=== PATIENT | female | born 1930 | race Caucasian/White ===

== ENCOUNTER 2018-04-24 11:15 | Inpatient (IN) ==
[2018-04-24 12:16] LABS: Basophils % 0.4 % (0.1-2.0); Eosinophils # 0.1 K/mm3 (0.0-0.4); Eosinophils % 1.3 % (0.1-12.0); Hemoglobin 14.9 g/dL (12.2-16.2); Lymphocytes # 0.7 K/mm3 (0.7-4.5); Lymphocytes % 13.5 % (10-50); Mean Corpuscular HGB Conc 32.4 g/dL (31.8-35.4); Mean Corpuscular Hemoglobin 28.8 pg (27.0-31.2); Mean Corpuscular Volume 88.9 fl (81-99); Mean Platelet Volume 6.8 fl (7.4-10.4); Monocytes # 0.4 K/mm3 (0.1-1.0); Monocytes % 6.6 % (1.7-9.3); Neutrophils # 4.3 K/mm3 (1.8-7.8); Neutrophils % 78.2 % (37.0-80.0); Platelet Count 196 K/mm3 (142-424); Red Blood Count 5.18 M/mm3 (4.20-5.40); Red Cell Distribution Width 14.4 % (11.5-17.5); White Blood Count 5.5 K/mm3 (4.8-10.8)
[2018-04-24 12:26] LABS: Anion Gap 9.1 mEq/L (5-15); Calcium 8.6 mg/dL (8.5-10.1); Potassium 4.1 mmoL/L (3.5-5.1)
--- NOTE | 2018-04-24 15:41 | Pharmacy Consult Notes ---
[facility] Pharmacy VTE Monitoring - Patient Demographics Admission date: 04/24/18 Report Date: 04/24/18 Time: 15:41 Allergies/Adverse Reactions: Patient Allergies amoxicillin [From Augmentin] Allergy (Intermediate, Verified 04/13/18 13:10) Blister clavulanic acid [From Augmentin] Allergy (Intermediate, Verified 04/13/18 13:10) Blister clarithromycin [CLARITHROMYCIN] Allergy (Unknown, Verified 04/13/18 13:10) codeine [CODEINE] Allergy (Unknown, Verified 04/13/18 13:10) diazepam [DIAZEPAM] Allergy (Unknown, Verified 04/13/18 13:10) Height: 1.65 m Weight: 81.193 kg - VTE Risk Labs: VTE Related Lab Results Hgb 14.9 g/dL (12.2-16.2) 04/24/18 12:08 Hct 46.0 % (37.0-47.0) 04/24/18 12:08 Plt Count 196 K/mm3 (142-424) 04/24/18 12:08 BUN 22 mg/dL (7-18) H 04/24/18 12:08 Creatinine 1.01 mg/dL (0.55-1.02) 04/24/18 12:08 Estimated Creat Clear 51 mL/min (50-200) 04/24/18 12:08 - Prophylaxis VTE Prophylaxis Ordered?: Yes Types of VTE Prophylaxis: TEDS Knee High Location of Applied Device: Bilateral Lower Extremeties - VTE Diagnosis Confirmed Treatment or plan recommended: Continue Current Treatment
--- NOTE | 2018-04-24 18:16 | History & Physical Report ---
*Admission Date: 04/24/18 *Chief complaint: Malaise/weakness/hyponatremia *History of present illness: 87-year-old white female who ends of her multiple medical problems has enjoyed very good functional status over the past decades, and I herself, with excellent attention from her children, who has had a goals of accelerated hypertension who has several months. 4 weeks ago I started chlorthalidone as she had previously had problems with HCTZ because of muscle pain. She had done initially well but over the past couple of weeks he developed increasing fatigue symptoms. I instructed her daughter to start medication a couple of days ago and she came to the office today where she was found to have vomiting, appear to be dry from a volume status and sent to the outpatient area for IV fluids and lab work. Lab work showed critically low sodium of 19 and she is admitted to hospital for ongoing fluids. Interestingly she has no cognitive deficits and is alert and oriented x3. [facility] History I have reviewed the patient's past medical history: Yes Medical History: Reports:: Hyperlipidemia, Hypertension Denies:: Cancer, Diabetes Mellitus Type 1, Diabetes Mellitus Type 2, MRSA, Seizures Other Medical History: Reports: Anemia, Arthritis, Hoarseness Laterality Cases: Bilateral: Tonsillectomy Other Surgeries: Yes: Hysterectomy-Total, Skin Cancer Excision Amputation: No Fractures: No - *Social History Educational Level: Completed High School Smoking Status: Never smoker Alcohol Intake: never Occupational Status: retired Housing: house Household Members: none - Psychiatric History Expresses thoughts of harming self/others: None Suicide Plan Description: No Plan *Family Hx:: Asthma, Cancer, Hypertension Review of Systems - Review of Systems Review of systems:: pertinent systems reviewed and negative unless documented below - Constitutional Reports anorexia, Reports fatigue, Denies headache(s) - Eyes Denies blind spots, Denies blurry vision, Denies change in vision - ENT Denies abnormal hearing, Denies bleeding gums - *Respiratory Denies change in phlegm color, Denies chest congestion, Denies cough - *Gastrointestinal Reports abdominal pain, Reports bloating - *Genitourinary Denies abnormal periods - *Musculoskeletal Denies abnormal walking, Denies joint pain, Denies decreased muscle mass - Integumentary/Breasts Denies bleeding lesions, Denies change in skin color, Denies dry skin - *Neurologic Reports abnormal walking - Psychiatric Denies abnormal sleep pattern, Denies lack of enjoyment - Endocrine Denies cold intolerance - Hematologic/Lymphatic Denies easy bleeding, Denies easy bruising - Allergic/Immunologic Denies GI upset with certain foods Meds Home Medications Medication Instructions Recorded Confirmed Type Aspirin [Adult Low Dose Aspirin EC] 81 mg PO DAILY 04/25/17 04/24/18 History Clopidogrel Bisulfate [Plavix 75mg 75 mg PO DAILY 04/25/17 04/24/18 History Tab] Pravastatin Sodium [Pravachol] 40 mg PO HS 04/25/17 04/24/18 History ALPRAZolam [Xanax 0.5mg tab] 0.5 mg PO HSP PRN 04/26/17 04/24/18 History Bisoprolol Fumarate [Bisoprolol 10 mg PO DAILY 04/26/17 04/24/18 History 10mg Tablet] Lansoprazole [Prevacid] 30 mg PO BID 04/26/17 04/24/18 History Sucralfate [Sucralfate 1gm 1 gm PO ACHS 04/26/17 04/24/18 History Tab] Chlorthalidone 25 mg PO DAILY 04/24/18 04/24/18 History Losartan Potassium 100 mg PO DAILY 04/24/18 04/24/18 History Oxybutynin Chloride [Ditropan 5mg 5 mg PO BID 04/24/18 04/24/18 History tablet] Allergies Allergy/AdvReac Type Severity Reaction Status Date / Time amoxicillin [From Augmentin] Allergy Intermediate Blister Verified 04/13/18 13:10 clavulanic acid Allergy Intermediate Blister Verified 04/13/18 13:10 [From Augmentin] clarithromycin Allergy Unknown Verified 04/13/18 13:10 [CLARITHROMYCIN] codeine [CODEINE] Allergy Unknown Verified 04/13/18 13:10 diazepam [DIAZEPAM] Allergy Unknown Verified 04/13/18 13:10 Exam Vital signs and Labs for Last 24 Hours: Temp Pulse Resp BP Pulse Ox 97.5 F L 62 18 185/89 H 94 L 04/24/18 16:04 04/24/18 16:04 04/24/18 16:04 04/24/18 16:04 04/24/18 16:04 Laboratory Results - last 24 hr 04/24/18 12:08: WBC 5.5, RBC 5.18, Hgb 14.9, Hct 46.0, MCV 88.9, MCH 28.8, MCHC 32.4, RDW 14.4, Plt Count 196, MPV 6.8 L, Neut % (Auto) 78.2, Lymph % (Auto) 13.5, [place] % (Auto) 6.6, Eos % (Auto) 1.3, Baso % (Auto) 0.4, Neut # (Auto) 4.3, Lymph # (Auto) 0.7, [place] # (Auto) 0.4, Eos # (Auto) 0.1, Baso # (Auto) 0.0 04/24/18 12:08: Sodium 119 L, Potassium 4.1, Chloride 84 L, Carbon Dioxide 30, Anion Gap 9.1, BUN 22 H, Creatinine 1.01, Estimated Creat Clear 51, Estimated GFR 52 L, Est GFR ( Amer) 63, Glucose 113 H, Calcium 8.6 I & O for Last 24 hours: Intake & Output 04/22/18 04/23/18 04/24/18 04/25/18 11:59 11:59 11:59 11:59 Intake Total 360 / 360 Output Total 0 / 0 Balance 360 / 360 Weight 179 lb 174 lb 8 oz Narrative: After a couple of liter fluid patient appears brighter than she did in the office. Lungs have good movement. Heart rate regular. Abdomen soft, minimally tender. Oropharynx, moist ENT exam otherwise clear. No JVD No clubbing, no cyanosis. No edema. Assessment and Plan (1) Hyponatremia Current visit: Yes Status: Acute Category: Medical Code(s): E87.1 - Hypo- osmolality and hyponatremia Probably from medication adverse effect. Already feels better with hydration. Continue normal saline overnight and check labs tomorrow. Start regular medications in the hospital obviously except for thiazide diu retic. (2) Hypertension, accelerated Current visit: Yes Status: Acute Category: Medical Code(s): I10 - Essential (primary) hypertension Blood planes elevated. She is currently asymptomatic. She is on beta-edna and max dose angiotensin receptor edna. Add low-dose amlodipine with 1 dose tonight to see if this will help blood pressure and watch heart rate tomorrow morning.
[2018-04-25 07:33] LABS: Basophils % 0.5 % (0.1-2.0); Eosinophils # 0.1 K/mm3 (0.0-0.4); Eosinophils % 1.8 % (0.1-12.0); Hematocrit 44.6 % (37.0-47.0); Hemoglobin 14.2 g/dL (12.2-16.2); Lymphocytes # 0.8 K/mm3 (0.7-4.5); Lymphocytes % 15.7 % (10-50); Mean Corpuscular HGB Conc 31.8 g/dL (31.8-35.4); Mean Corpuscular Hemoglobin 28.5 pg (27.0-31.2); Mean Corpuscular Volume 89.6 fl (81-99); Monocytes # 0.3 K/mm3 (0.1-1.0); Monocytes % 5.9 % (1.7-9.3); Neutrophils # 3.9 K/mm3 (1.8-7.8); Neutrophils % 76.2 % (37.0-80.0); Platelet Count 184 K/mm3 (142-424); Red Blood Count 4.98 M/mm3 (4.20-5.40); Red Cell Distribution Width 14.5 % (11.5-17.5); White Blood Count 5.1 K/mm3 (4.8-10.8)
[2018-04-25 07:40] LABS: Anion Gap 7.8 mEq/L (5-15); Calcium 8.2 mg/dL (8.5-10.1); Potassium 3.8 mmoL/L (3.5-5.1)
--- NOTE | 2018-04-25 11:36 | Progress Note ---
Internal Medicine - PN: Subj *Date: 04/25/18 *Time: 11:32 Interval history: Patient reports feeling better this morning but still weak. Electrolyte improving. Tolerating p.o. intake. She is concerned however because she has some mild dysuria with strong smelling urine. Denies any fevers, nausea vomiting, shortness of breath, syncope. Does complain of mild dysuria and 2 loose stools. Exam Vital signs and Labs for Last 24 Hours: Temp Pulse Resp BP Pulse Ox 98.3 F 58 L 16 164/69 H 96 04/25/18 08:00 04/25/18 08:00 04/25/18 08:00 04/25/18 08:00 04/25/18 08:00 Laboratory Results - last 24 hr 04/24/18 12:08: WBC 5.5, RBC 5.18, Hgb 14.9, Hct 46.0, MCV 88.9, MCH 28.8, MCHC 32.4, RDW 14.4, Plt Count 196, MPV 6.8 L, Neut % (Auto) 78.2, Lymph % (Auto) 13.5, [place] % (Auto) 6.6, Eos % (Auto) 1.3, Baso % (Auto) 0.4, Neut # (Auto) 4.3, Lymph # (Auto) 0.7, [place] # (Auto) 0.4, Eos # (Auto) 0.1, Baso # (Auto) 0.0 04/24/18 12:08: Sodium 119 L, Potassium 4.1, Chloride 84 L, Carbon Dioxide 30, Anion Gap 9.1, BUN 22 H, Creatinine 1.01, Estimated Creat Clear 51, Estimated GFR 52 L, Est GFR ( Amer) 63, Glucose 113 H, Calcium 8.6 04/25/18 07:15: WBC 5.1, RBC 4.98, Hgb 14.2, Hct 44.6, MCV 89.6, MCH 28.5, MCHC 31.8, RDW 14.5, Plt Count 184, MPV 7.0 L, Neut % (Auto) 76.2, Lymph % (Auto) 15.7, [place] % (Auto) 5.9, Eos % (Auto) 1.8, Baso % (Auto) 0.5, Neut # (Auto) 3.9, Lymph # (Auto) 0.8, [place] # (Auto) 0.3, Eos # (Auto) 0.1, Baso # (Auto) 0.0 04/25/18 07:15: Sodium 127 L, Potassium 3.8, Chloride 96 L, Carbon Dioxide 27, Anion Gap 7.8, BUN 14 D, Creatinine 0.87, Estimated Creat Clear 51, Estimated GFR 62, Est GFR ( Amer) 75, Glucose 95, Calcium 8.2 L I & O for Last 24 hours: Intake & Output 04/22/18 04/23/18 04/24/18 04/25/18 23:59 23:59 23:59 23:59 Intake Total 360 / 360 2192 / 2192 Output Total 0 / 0 800 / 800 Balance 360 / 360 1392 / 1392 Weight 79.152 kg 80.739 kg Narrative: Alert and oriented this morning, very pleasant in conversation. Not ill- appearing. Lungs have good movement, clear to auscultation, no crackles Heart rate regular. Abdomen soft, minimally tender. Oropharynx, moist ENT exam otherwise clear. No JVD No clubbing, no cyanosis. No edema. Assessment and Plan (1) Hyponatremia Current visit: Yes Status: Acute Category: Medical Code(s): E87.1 - Hypo- osmolality and hyponatremia Improving, signs of cognitive impairment or confusion. Continue repletion with IV fluids, slow rate of normal saline to third cc an hour. Repeat labs in the morning. Improving fatigue likely due to electrolyte abnormalities and dehydration. And to get up a bed today to bedside chair multiple times and walking multiple times with assistance. If more steady on feet and normal so tomorrow for discharge home (2) Hypertension, accelerated Current visit: Yes Status: Chronic Category: Medical Code(s): I10 - Essential (primary) hypertension Stable. Avoid diuretics at this time. (3) Acute kidney injury Current visit: Yes Status: Resolved Category: Medical Code(s): N17.9 - Acute kidney failure, unspecified Present on admission his creatinine was greater than 1 with baseline approximately 0.7, additionally BUN elevated -Resolved with fluid hydration -Monitor again in the morning, avoid nephrotoxic's (4) Dysuria Current visit: Yes Status: Acute Category: Medical Code(s): R30.0 - Dysuria Unclear etiology, UA and UC pending. Remains afebrile
[2018-04-25 11:56] LABS: Microscopic, Urine URINE MICROSCOPIC (MICROSCOPIC)
[2018-04-25 12:10] LABS: Appearance,Urine CLEAR (Clear); Bilirubin,Urine Negative (Negative); Blood, Urine Negative (Negative); Color,Urine YELLOW (Yellow); Glucose,Urine (UA) Negative (Negative); Ketones,Urine Negative (Negative); Leukocyte Esterase,Urine 1+ (Negative); Protein,Urine Negative (Negative); Specific Gravity, Urine <= 1.005 (1.005-1.030); Urobilinogen,Urine 0.2 EU/dl (0.2)
[2018-04-25 13:44] LABS: Amorphous Sediment,Urine Trace /lpf; Squamous Epithelial Cell,Urine Occasional #/hpf (0-5)
[2018-04-26 06:24] LABS: Basophils % 0.3 % (0.1-2.0); Eosinophils # 0.1 K/mm3 (0.0-0.4); Eosinophils % 2.1 % (0.1-12.0); Hematocrit 41.7 % (37.0-47.0); Hemoglobin 13.4 g/dL (12.2-16.2); Lymphocytes # 0.9 K/mm3 (0.7-4.5); Lymphocytes % 14.9 % (10-50); Mean Corpuscular HGB Conc 32.1 g/dL (31.8-35.4); Mean Corpuscular Hemoglobin 28.7 pg (27.0-31.2); Mean Corpuscular Volume 89.3 fl (81-99); Mean Platelet Volume 6.6 fl (7.4-10.4); Monocytes # 0.3 K/mm3 (0.1-1.0); Neutrophils # 4.4 K/mm3 (1.8-7.8); Neutrophils % 76.7 % (37.0-80.0); Platelet Count 170 K/mm3 (142-424); Red Blood Count 4.67 M/mm3 (4.20-5.40); Red Cell Distribution Width 14.6 % (11.5-17.5); White Blood Count 5.7 K/mm3 (4.8-10.8)
[2018-04-26 06:35] LABS: Anion Gap 10.8 mEq/L (5-15); Calcium 8.1 mg/dL (8.5-10.1); Potassium 3.8 mmoL/L (3.5-5.1)
--- NOTE | 2018-04-26 08:30 | Discharge Summary ---
General - General Admission date:: 04/24/18 Discharge date: 04/26/18 HPI HPI: 87-year-old white female who ends of her multiple medical problems has enjoyed very good functional status over the past decades, and I herself, with excellent attention from her children, who has had a goals of accelerated hypertension who has several months. 4 weeks ago I started chlorthalidone as she had previously had problems with HCTZ because of muscle pain. She had done initially well but over the past couple of weeks he developed increasing fatigue symptoms. I instructed her daughter to start medication a couple of days ago and she came to the office today where she was found to have vomiting, appear to be dry from a volume status and sent to the outpatient area for IV fluids and lab work. Lab work showed critically low sodium of 19 and she is admitted to hospital for ongoing fluids. Interestingly she has no cognitive deficits and is alert and oriented x3. Hospital Course Hospital Course: Ms. Leone was admitted due to electrolyte disturbances and unsteadiness on her feet. Her sodium was gradually replaced with IV fluids with normalization today (day of discharge). Diuretics were held as this was believed to be the culprit for electrolyte disturbances. She reports feeling much better. Got up to the bedside chair yesterday for several hours. Ambulating with minimal assistance and the use of a cane. Transition back and forth to the bathroom independently. Ms. leone did however complain of some dysuria during admission. UA and urine culture positive for UTI. Initiated on Macrobid. Plan to complete 7-day course, final culture and sensitivity pending. We will follow-up as outpatient . She remained hemodynamically stable. Still has some elevated blood pressure however adjustments have been made to her regimen including addition of amlodipine. Holding diuretics due to light disturbances. Plan to reevaluate in the outpatient setting. Meeting criteria for discharge home. Remains afebrile, no shortness of breath, no headache, no changes in mentation, no chest pain. Objective Vital signs: Temp Pulse Resp BP Pulse Ox 98.5 F 60 20 188/98 H 97 04/25/18 20:00 04/26/18 04:00 04/26/18 04:00 04/26/18 04:45 04/26/18 04:00 Narrative: Alert and oriented this morning, very pleasant in conversation. Not ill- appearing. Lungs have good movement, clear to auscultation, no crackles Heart rate regular. Abdomen soft, minimally tender. Oropharynx, moist ENT exam otherwise clear. No JVD No clubbing, no cyanosis. No edema. Results Labs on day of discharge: Labs from last 24 hours 04/26/18 04/26/18 04/25/18 06:15 06:15 11:25 WBC 5.7 RBC 4.67 Hgb 13.4 Hct 41.7 MCV 89.3 MCH 28.7 MCHC 32.1 RDW 14.6 Plt Count 170 MPV 6.6 L Neut % (Auto) 76.7 Lymph % (Auto) 14.9 [place] % (Auto) 6.0 Eos % (Auto) 2.1 Baso % (Auto) 0.3 Neut # (Auto) 4.4 Lymph # (Auto) 0.9 [place] # (Auto) 0.3 Eos # (Auto) 0.1 Baso # (Auto) 0.0 Sodium 134 L Potassium 3.8 Chloride 100 Carbon Dioxide 27 Anion Gap 10.8 BUN 12 Creatinine 0.96 Estimated Creat Clear 53 Estimated GFR 55 L Est GFR ( Amer) 67 Glucose 100 Calcium 8.1 L Urine Color Yellow Urine Appearance Clear Urine pH 6.0 Ur Specific [place] <= 1.005 Urine Protein Negative Urine Glucose (UA) Negative Urine Ketones Negative Urine Blood Negative Urine Nitrate Negative Urine Bilirubin Negative Urine Urobilinogen 0.2 Ur Leukocyte Esterase 1+ A Urine RBC None Urine WBC 3-5 Ur Squamous Epith Cells Occasional Amorphous Sediment Trace Preliminary micro results at discharge 04/25/18 11:25 Urine Culture - Preliminary Urine,Clean Catch Gram Negative Rods DS: Diagnosis - Discharge Diagnosis (1) Hyponatremia Status: Resolved (2) Hypertension, accelerated Status: Chronic (3) Acute kidney injury Status: Resolved (4) Dysuria Status: Acute Discharge Plan - Patient Discharge Instructions ACTIVITY: Ambulate as tolerated DIET: continue same diet Patient Instructions: High Blood Pressure, DI for Dehydration -- Adult, DI for Hyponatremia - Follow up Plan Follow up with: Michel Pineda MD [Primary Care Provider] - 1 week Disposition: Home, Self-Half-Way Medications: Home Medications Medication Instructions Recorded Confirmed Type Aspirin [Adult Low Dose Aspirin EC] 81 mg PO DAILY 04/25/17 04/24/18 History Clopidogrel Bisulfate [Plavix 75mg 75 mg PO DAILY 04/25/17 04/24/18 History Tab] Pravastatin Sodium [Pravachol] 40 mg PO HS 04/25/17 04/24/18 History ALPRAZolam [Xanax 0.5mg tab] 0.5 mg PO HSP PRN 04/26/17 04/24/18 History Bisoprolol Fumarate [Bisoprolol 10 mg PO DAILY 04/26/17 04/24/18 History 10mg Tablet] Lansoprazole [Prevacid] 30 mg PO BID 04/26/17 04/24/18 History Sucralfate [Sucralfate 1gm 1 gm PO ACHS 04/26/17 04/24/18 History Tab] Losartan Potassium 100 mg PO DAILY 04/24/18 04/24/18 History Oxybutynin Chloride [Ditropan 5mg 5 mg PO BID 04/24/18 04/24/18 History tablet] Amlodipine Besylate [Amlodipine 10 mg PO DAILY 30 Days #30 tab 04/26/18 Rx 10mg Tab] Nitrofurantoin Monohyd/M-Cryst 100 mg PO BID 7 Days #13 capsule 04/26/18 Rx [Macrobid 100 mg Capsule] Prescriptions/Medication Reconciliation: New Amlodipine Besylate [Amlodipine 10mg Tab] 10 mg PO DAILY 30 Days #30 tab Nitrofurantoin Monohyd/M-Cryst [Macrobid 100 mg Capsule] 100 mg PO BID 7 Days #13 capsule Continue Aspirin [Adult Low Dose Aspirin EC] 81 mg PO DAILY Clopidogrel Bisulfate [Plavix 75mg Tab] 75 mg PO DAILY Lansoprazole [Prevacid] 30 mg PO BID ALPRAZolam [Xanax 0.5mg tab] 0.5 mg PO HSP PRN PRN Reason: Anxiety Sucralfate [Sucralfate 1gm Tab] 1 gm PO ACHS Bisoprolol Fumarate [Bisoprolol 10mg Tablet] 10 mg PO DAILY Losartan Potassium 100 mg PO DAILY Pravastatin Sodium [Pravachol] 40 mg PO HS Oxybutynin Chloride [Ditropan 5mg tablet] 5 mg PO BID Discontinued Chlorthalidone 25 mg PO DAILY
== END 2018-04-26 11:55 | disposition home or self-care (01) | DRG 641 ==
LOC: 2ND 11:15 → INF 11:15
PROVIDERS: ADMIT Internal Medicine Adolescent Medicine; ATTEND Internal Medicine Adolescent Medicine
DX: Z88.5 Allergy status to narcotic agent; T50.2X5A Adverse effect of carbonic-anhydrase inhibitors, benzothiadiazides and other diuretics, initial encounter; Z88.8 Allergy status to other drugs, medicaments and biological substances; E78.5 Hyperlipidemia, unspecified; Z79.899 Other long term (current) drug therapy; I10 Essential (primary) hypertension; Z80.9 Family history of malignant neoplasm, unspecified; Z79.02 Long term (current) use of antithrombotics/antiplatelets; Z88.0 Allergy status to penicillin; Z79.82 Long term (current) use of aspirin; N17.9 Acute kidney failure, unspecified; Z90.710 Acquired absence of both cervix and uterus; R26.81 Unsteadiness on feet; N39.0 Urinary tract infection, site not specified; Z82.5 Family history of asthma and other chronic lower respiratory diseases; E87.1 Hypo-osmolality and hyponatremia; Z82.49 Family history of ischemic heart disease and other diseases of the circulatory system; Z85.828 Personal history of other malignant neoplasm of skin

== ENCOUNTER 2018-09-11 11:01 | Inpatient (IN) ==
[2018-09-11 11:32] LABS: Basophils % 0.1 % (0.1-2.0); Eosinophils % 0.3 % (0.1-12.0); Hemoglobin 13.4 g/dL (12.2-16.2); Lymphocytes # 0.6 K/mm3 (0.7-4.5); Mean Corpuscular HGB Conc 32.8 g/dL (31.8-35.4); Mean Corpuscular Hemoglobin 29.3 pg (27.0-31.2); Mean Corpuscular Volume 89.4 fl (81-99); Mean Platelet Volume 7.3 fl (7.4-10.4); Monocytes # 0.4 K/mm3 (0.1-1.0); Monocytes % 4.1 % (1.7-9.3); Neutrophils # 9.4 K/mm3 (1.8-7.8); Neutrophils % 89.4 % (37.0-80.0); Platelet Count 227 K/mm3 (142-424); Red Blood Count 4.58 M/mm3 (4.20-5.40); Red Cell Distribution Width 14.9 % (11.5-17.5); White Blood Count 10.5 K/mm3 (4.8-10.8)
[2018-09-11 11:42] LABS: Albumin Level 3.2 gm/dL (3.4-5.0); Albumin/Globulin Ratio 0.8 (1.1-1.8); Anion Gap 14.9 mEq/L (5-15); Bilirubin,Total 0.6 mg/dL (0.2-1.0); Calcium 9.1 mg/dL (8.5-10.1); Globulin 4.2 gm/dl (1.3-3.2); Potassium 3.9 mmoL/L (3.5-5.1); Total Protein,Serum 7.4 gm/dL (6.4-8.2)
--- NOTE | 2018-09-11 11:59 | Emergency Department Note ---
ED Disposition Clinical Impression: Community acquired pneumonia Qualifiers: Laterality: left Lung location: lower lobe of lung Qualified Code(s): J18.1 - Lobar pneumonia, unspecified organism Fall Qualifiers: Encounter type: initial encounter Qualified Code(s): W19.XXXA - Unspecified fall, initial encounter Contusion of left hip Qualifiers: Encounter type: initial encounter Qualified Code(s): S70.02XA - Contusion of left hip, initial encounter Disposition: Admitted As Inpatient Condition on Discharge: [facility] - Critical Care Critical Care Time: No Attestation: On 09/11/18, the high probability of a clinically significant, sudden or life threatening deterioration of the following system(s) required my full and direct attention, intervention and personal management. The time I documented below is in addition to time spent performing reported procedures but includes the following listed in this critical care notation. Medical Decision Making - Luis Inquiry Pt receiving controlled substance: No Vital Signs: 09/11/18 11:02 09/11/18 11:50 09/11/18 12:32 Temperature 103.3 F H 102.1 F H Temperature Source Oral Oral Pulse Rate [Right Radial] 85 83 84 Respiratory Rate 20 20 18 Blood Pressure [Right Arm] 200/91 H 150/84 H 180/79 H Blood Pressure Mean [Right Arm] 127 106 112 Blood Pressure Source [Right Arm] Automatic Cuff Automatic Cuff Automatic Cuff Blood Pressure Position [Right Arm] Sitting Sitting Sitting 02 Sat by Pulse Oximetry 96 95 94 L Oxygen Delivery Method Room Air Room Air Room Air 09/11/18 13:19 09/11/18 14:00 Temperature 101.1 F H Temperature Source Oral Pulse Rate [Right Radial] 80 72 Respiratory Rate 18 Blood Pressure [Right Arm] 159/64 H 153/63 H Blood Pressure Mean [Right Arm] 95 93 Blood Pressure Source [Right Arm] Automatic Cuff Blood Pressure Position [Right Arm] 02 Sat by Pulse Oximetry 93 L 91 L Oxygen Delivery Method Room Air Room Air - Lab Data Lab Results 09/11/18 11:15: WBC 10.5 D, RBC 4.58, Hgb 13.4, Hct 41.0, MCV 89.4, MCH 29.3, MCHC 32.8, RDW 14.9, Plt Count 227, MPV 7.3 L, Neut % (Auto) 89.4 H, Lymph % (Auto) 6.0 L, [place] % (Auto) 4.1, Eos % (Auto) 0.3, Baso % (Auto) 0.1, Neut # (Auto) 9.4 H, Lymph # (Auto) 0.6 L, [place] # (Auto) 0.4, Eos # (Auto) 0.0, Baso # (Auto) 0.0, Total Counted 100, Neutrophils % (Manual) 88 H, Band Neutrophils % 2.0, Lymphocytes % (Manual) 6 L, Monocytes % (Manual) 4, Platelet Estimate Normal, RBC Morphology Normal 09/11/18 11:15: Sodium 137, Potassium 3.9, Chloride 102, Carbon Dioxide 24, Anion Gap 14.9, BUN 18, Creatinine 1.37 H, Estimated Creat Clear 39, Estimated GFR 37 L, Est GFR ( Amer) 44 L, Glucose 133 H, Calcium 9.1, Total Bilirubin 0.6, AST 13 L, ALT 24, Alkaline Phosphatase 61, Total Protein 7.4, Albumin 3.2 L, Globulin 4.2 H, Albumin/Globulin Ratio 0.8 L 09/11/18 11:15: Lactate 1.3 09/11/18 11:49: Urine Color Yellow, Urine Appearance Clear, Urine pH 6.0, Ur Specific [place] 1.015, Urine Protein Trace, Urine Glucose (UA) Negative, Urine Ketones Negative, Urine Blood Negative, Urine Nitrate Negative, Urine Bilirubin Negative, Urine Urobilinogen 0.2, Ur Leukocyte Esterase Trace, Urine RBC Occasional, Urine WBC 3-5, Ur Squamous Epith Cells Occasional, Urine Bacteria Trace Result diagrams: 09/11/18 11:15 09/11/18 11:15 Orders (Tests/Meds): ED MEDICATIONS Generic Name Dose Route Start Last Admin Trade Name Freq PRN Reason Stop Dose Admin Ceftriaxone Sodium 1 gm/ 50 mls @ 100 mls/hr 09/11/18 14:15 Sodium Chloride IV 09/25/18 14:14 Q24H CHRISTOPHER Protocol Azithromycin 500 mg/ Sodium 250 mls @ 250 mls/hr 09/11/18 14:15 Chloride IV 09/25/18 14:14 Q24H CHRISTOPHER Protocol Discontinued Medications Generic Name Dose Route Start Last Admin Trade Name Freq PRN Reason Stop Dose Admin Acetaminophen 650 mg 09/11/18 11:58 09/11/18 11:59 Acetaminophen 325mg Tab PO 09/11/18 11:59 650 mg ONCE ONE Administration Ondansetron HCl 4 mg 09/11/18 11:08 09/11/18 11:07 Zofran 4mg/2ml Vial IV 09/11/18 11:09 4 mg ONCE ONE Administration ORDERS Category Date Time Status Femur XR left 2 views [XR femur LT 2V] Stat Exams 09/11/18 11:51 Taken Hip XR left minimum 2 views [XR hip LT 2-3V w/pelvis] Exams 09/11/18 11:50 Taken Stat Blood Culture Stat Micro 09/11/18 11:15 Received - Radiology Data #1 Image(s): Chest, Hip, Femur Image Reviewed: Yes I reviewed the patient's radiology image, Yes I discussed t he image results w/the radiologist, Yes I have reviewed radiologist's interpretation IMPRESSION:-------- Suspect infiltrate left infrahilar region towards left lower lobe accounting for the streaky area & slight increased density here . Also minimal airspace disease towards left CP angle associated The known generous hiatal hernia partial obscured today I believe body by likely airspace disease left lung base . Suboptimal inspiration along with light technique accentuating interstitial markings- but cannot exclude mild vascular congestion and subtle interstitial infiltrate. May be within checking baseline BMP in the workup workup. Heart appears generous in size but this may also in part due to suboptimal inspiration Dictated By: Fabian Barajas Signed By: <Electronically signed by Fabian Barajas in OV> 09/11/18 1220 Left hip, left femur, pelvis, negative to my interpretation. - CT Data CT Scan: Head Time Received: 12:[address] Reviewed: Yes: I have viewed the radiologist's interpretation Findings Narrative: IMPRESSION: No acute intracranial findings No territorial infarct. No hemorrhage. No subdural collections. Chronic small vessel deep white matter ischemic gliotic changes at cerebral hemispheres bilaterally again noted. , Perhaps with slight progression since 2011 CT head. . subtle dilatation of the third and lateral ventricles most likely reflecting mild cerebral atrophy as well Complete opacification of the left sphenoid sinus has developed since 2012.. No expansion or destruction The Stippled calcification centrally is more suggestive of long-standing slowly calcifying mucoid material here. Dictated By: Fabian Barajas Signed By: <Electronically signed by Fabian Barajas in OV> 09/11/18 1229 - ECG Data Tracing #1 EKG interpreted by Charly Morales MD: Rhythm: sinus Rate: 83 [place]: Left Ectopy: none Conduction: Right bundle branch block, left anterior fascicular block ST Segment Changes: none T Wave Changes: none Q Waves: none No evidence of acute ischemia or injury - Physician Consults Physician Consulted: Aristides - present Time: 13:15 Reason -: Pt condition Comment/Response: He turned patient's pain pump off. States to treat pain as we would otherwise. Does not feel fever has anything to do with recent pain pump insertion. Recommends treating for pneumonia as per usual. Additional Consult: Edwin Time: 13:50 Reason -: Admission Comment/Response: Agrees to admit the patient to the hospital. We discussed the patient's clinical information, including history, exam, laboratory and radiology results and ED course. Per hospital procedure, I will write temporary bridge inpatient orders on the patient. Specific orders requested by the admitting physician: The patient lists allergies to amoxicillin and clarithromycin, but review of record here shows that she has had Rocephin and Zithromax in the past. He requests treatment for community-acquired pneumonia with Rocephin and Zithromax. General Adult HPI - General Chief complaint: Fall Stated complaint: fall, fever, L leg tingling, L sided facial droop Time Seen by Provider: 09/11/18 11:50 Mode of Arrival: EMS Limitations: pt having difficulty answering questions Description of Symptoms (Recalled from ER Triage Doc. by RN): pt brought in per EMS, EMS reports they were called to pt residence pt back pain r/t fall. Pt family reported to EMS pt tripped and fell at approx 0200 this morning. EMS repors L sided facial droop, L leg tingling, and slurred speech. Pt hypertensiv e and has fever per EMS report. Upon arrival to ED pt c/o back pain, pt reports a fall, pt denies numbness/tingling. No slurred speech noted, pt is having difficulty answer questions. Pt c/o "being cold and shivering". Pt family reports pt had a pain pump placed in her back on Friday of this week by Dr. Irving, pt has degenerative disc in back per family. Pt family also reports pt being treated for UTI with Bactrim - History of Present Illness HPI narrative: Brought in by ambulance. She fell last night at about 2 AM when she got up to go to the bathroom. Complains of left hip and femur pain since the fall. Family got her up off of the floor, but since then she has been able to ambulate by herself. Family noted slurry speech this morning. Currently says she only hurts in her back. She has chronic back pain and had a pain pump placed [address] Irving. She was started on Bactrim for wound prophylaxis. Noted to have a fever during transport by EMS. Denies cough or cold symptoms. She had some diarrhea since her surgery. She had some vomiting of bile this morning. Denies abdominal pain. Denies urinary symptoms. Treated for UTI in June. - Related Data Home Medications Medication Instructions Recorded Confirmed Aspirin [Adult Low Dose Aspirin EC] 81 mg PO DAILY 04/25/17 09/08/18 Clopidogrel Bisulfate [Plavix 75mg 75 mg PO DAILY 04/25/17 09/09/18 Tab] Pravastatin Sodium [Pravachol] 40 mg PO HS 04/25/17 09/08/18 ALPRAZolam [Xanax 0.5mg tab] 0.5 mg PO HSP PRN 04/26/17 09/08/18 Bisoprolol Fumarate [Bisoprolol 10 mg PO DAILY 04/26/17 09/09/18 10mg Tablet] Lansoprazole [Prevacid] 30 mg PO BID 04/26/17 09/08/18 Sucralfate [Sucralfate 1gm 1 gm PO ACHS 04/26/17 09/08/18 Tab] Losartan Potassium 100 mg PO DAILY 04/24/18 09/09/18 Oxybutynin Chloride [Ditropan 5mg 5 mg PO BID 04/24/18 09/08/18 tablet] Amlodipine Besylate [Amlodipine 10 mg PO DAILY 05/15/18 09/09/18 10mg Tab] Meloxicam [Mobic 7.5mg Tab] 7.5 mg PO BID 08/21/18 09/08/18 Nitrofurantoin Monohyd/M-Cryst 100 mg PO BID 08/21/18 09/08/18 [Macrobid 100 mg Capsule] Sulfamethoxazole/Trimethoprim 1 tab PO BID 09/11/18 09/11/18 [Sulfamethoxazole-Tmp Ds Tablet] Allergies Allergy/AdvReac Type Severity Reaction Status Date / Time amoxicillin [From Augmentin] Allergy Intermediate Blister Verified 08/21/18 08:2 6 clavulanic acid Allergy Intermediate Blister Verified 08/21/18 08:26 [From Augmentin] clarithromycin Allergy Unknown Verified 08/21/18 08:26 [CLARITHROMYCIN] codeine [CODEINE] Allergy Unknown Verified 08/21/18 08:26 diazepam [DIAZEPAM] Allergy Unknown Verified 08/21/18 08:26 [facility] History - Hepatitis A Screen Drug use history?: No High risk sexual behaviors?: No History of sexually transmitted infection?: No Currently employed?: No Childcare worker?: No Do you have indoor plumbing?: Yes Do you have electricity?: Yes Attestation statement:: This patient has been screened for Hepatitis A risk factors. I have reviewed the patient's past medical history: Yes Medical History: Reports:: Gastroesophageal Reflux Disease(GERD), Hyperlipidemia, Hypertension, Transient Ischemic Attacks (TIA) Denies:: Cancer, Diabetes Mellitus Type 1, Diabetes Mellitus Type 2, Internal Pacemaker, MRSA, Seizures Other Medical History: Reports: Anemia, Arthritis, Hoarseness, Other (Obesity). Denies: Blood Transfusion Reaction Comment: Illnesses-hypertension, hypercholesterolemia, GERD, anxiety Laterality Cases: Bilateral: Tonsillectomy Other Surgeries: Yes: Hysterectomy-Total, Skin Cancer Excision. No: Pacemaker Amputation: No Fractures: No Comment: Operations-hysterectomy, skin cancer removals, cholecystectomy, bladder suspension, tonsillectomy, ear surgery - Social History Smoking Status: Never smoker Alcohol Intake: never Occupational Status: retired Housing: house Household Members: none Family Hx:: Asthma, Cancer, Hypertension ROS Obtained: Yes All systems reviewed & no additional complaints - Constitutional Constitutional: Reports chills, Reports fever(s) (Noted by EMS and in the emergency department) - ENT Ears, Nose, Mouth, and Throat: Denies nasal discharge, Denies sore throat - Cardiovascular Cardiovascular: Denies chest pain - Respiratory Respiratory: No cough, No dyspnea - Gastrointestinal Gastrointestingal: Reports: diarrhea, vomiting. Denies: abdominal pain - Musculoskeletal Musculoskeletal: Reports joint pain (Left hip), Reports back pain - Neurologic Neurologic: Reports as per HPI Physical Exam - General General appearance: alert, in no apparent distress - Head Head exam: atraumatic, normocephalic - Eye Eye exam: Present: normal appearance, PERRL, EOMI - ENT ENT exam: Present: mucous membranes moist - Neck Neck exam: Present: normal inspection, trachea midline. Absent: tenderness - Chest Chest inspection: Present: normal inspection, symmetric chest wall rise - Respiratory Respiratory exam: Present: normal lung sounds bilaterally. Absent: respiratory distress - Cardiovascular Cardiovascular exam: Present: regular rate, normal rhythm, normal heart sounds - Abdominal Exam Abdominal exam: Present: soft. Absent: distention, tenderness, guarding - Extremities Exam Extremities exam: Present: normal inspection, other (No shortening or malrotation of lower extremities.) - Back Exam Comment: Pain pump pads present on lumbar area. No erythema extending outside of the margins of the pads. No drainage seen. No tenderness elicited. - Neurological Exam Neurological exam: Present: alert, CN II-XII intact. Absent: motor sensory deficit - Psychiatric Psychiatric exam: Present: normal affect, normal mood - Skin Skin exam: Present: warm, dry
[2018-09-11 12:03] LABS: Microscopic, Urine URINE MICROSCOPIC (MICROSCOPIC)
[2018-09-11 12:08] LABS: Appearance,Urine CLEAR (Clear); Bilirubin,Urine Negative (Negative); Blood, Urine Negative (Negative); Color,Urine YELLOW (Yellow); Glucose,Urine (UA) Negative (Negative); Ketones,Urine Negative (Negative); Leukocyte Esterase,Urine TRACE (Negative); Protein,Urine TRACE (Negative); Specific Gravity, Urine 1.015 (1.005-1.030); Urobilinogen,Urine 0.2 EU/dl (0.2)
[2018-09-11 12:20] LABS: Lymphocytes % 6 % (10-50); Monocytes % 4 % (2-9); Neutrophils % 88 % (42-76); RBC Morphology Normal; Total Cells Counted 100
[2018-09-11 12:30] LABS: Bacteria,Urine Trace /lpf; RBC,Urine Occasional #/hpf (0-3); Squamous Epithelial Cell,Urine Occasional #/hpf (0-5)
--- NOTE | 2018-09-11 13:33 | Procedure Note ---
- Procedure Date: 09/11/18 Time: 13:29 Anesthesiologist:: Clayton Irving MD Complications:: None Pre-procedure Diagnosis:: Patient status post permanent intrathecal morphine pump pump placement with recent fall and possible pneumonia Post-procedure Diagnosis:: Same Indications for Procedure:: This patient is a pleasant 87-year-old white female who came into the ER this morning after a fall last night. She had some confusion and slurring of her speech. She was also hypertensive and febrile. She had a fever of 103. She was found to have infiltrate on chest x-ray. Her urine is clear. Her incisions are not red and not tender. It is too early for postop wound infection. She is having some hip pain where she fell and some low back pain. When I saw her in the ER she was alert and oriented. Given her possible pneumonia with some confusion we will turn her intrathecal morphine infusion off so it does not confuse her picture or add to her symptoms of confusion. Procedure Details:: Informed consent was obtained and the risk and benefits of the procedure was explained to the patient's family. Intrathecal pain pump was interrogated and the pump was turned off. Patient tolerated the procedure well with no complications. Plan and Disposition:: This patient intrathecal morphine infusion is currently off. She may need c overage with some oral pain medication to help with her pain symptoms and possible withdrawal symptoms. Given her pneumonia and confusion this morning I decided to turn the pain pump off so as to not confuse her constellation of symptoms. We can readily turn the pain pump back on when the patient is over her acute episode. Patient did restart her Plavix on . We will continue to follow the patient with you. Please call with any questions or concerns.
[2018-09-11 14:40] LABS: Coronavirus 229E Not Detected (NotDetected); Coronavirus NL63 Not Detected (NotDetected); Coronavirus OC43 Not Detected (NotDetected); Coronovirus HKU1,PCR Not Detected (NotDetected)
--- NOTE | 2018-09-11 14:51 | Pharmacy Consult Notes ---
[facility] Pharmacy VTE Monitoring - Patient Demographics Admission date: 09/11/18 Report Date: 09/11/18 Time: 14:51 Allergies/Adverse Reactions: Patient Allergies amoxicillin [From Augmentin] Allergy (Intermediate, Verified 08/21/18 08:26) Blister clavulanic acid [From Augmentin] Allergy (Intermediate, Verified 08/21/18 08:26) Blister clarithromycin [CLARITHROMYCIN] Allergy (Unknown, Verified 08/21/18 08:26) codeine [CODEINE] Allergy (Unknown, Verified 08/21/18 08:26) diazepam [DIAZEPAM] Allergy (Unknown, Verified 08/21/18 08:26) Height: 1.65 m Weight: 83.915 kg Patient Problems: Current Active Problems (Updated 09/11/18 @ 13:52 by Charly Morales MD) Community acquired pneumonia (Acute) Fall (Acute) Contusion of left hip (Acute) - VTE Risk Labs: VTE Related Lab Results Hgb 13.4 g/dL (12.2-16.2) 09/11/18 11:15 Hct 41.0 % (37.0-47.0) 09/11/18 11:15 Plt Count 227 K/mm3 (142-424) 09/11/18 11:15 BUN 18 mg/dL (7-18) 09/11/18 11:15 Creatinine 1.37 mg/dL (0.55-1.02) H 09/11/18 11:15 Estimated Creat Clear 39 mL/min (50-200) 09/11/18 11:15 Clinical Trial Participant: No - Prophylaxis VTE Prophylaxis Ordered?: Yes Types of VTE Prophylaxis: TEDS Knee High
--- NOTE | 2018-09-11 17:47 | History & Physical Report ---
*Admission Date: 09/11/18 *Chief complaint: Fever and confusion. *History of present illness: 87-year-old white female with long past medical history but fairly good functional status, who 2 days ago had pain pump implanted without problems. She was found to be significantly confused this morning, nonambulatory and febrile. Brought to the emergency department. Was found to have pneumonia on roentgenogram, and started on IV antibiotics. In talking to the family she has continued to take her opiate pain medication with pain pump started, and there is concerned about possible oversedation. This afternoon on exam she is brighter and more talkative according to family members. She states that she feels "much better than when I got here." [facility] History I have reviewed the patient's past medical history: Yes Medical History: Reports:: Gastroesophageal Reflux Disease(GERD), Hyperlipidemia, Hypertension, Transient Ischemic Attacks (TIA) Denies:: Cancer, Diabetes Mellitus Type 1, Diabetes Mellitus Type 2, Internal Pacemaker, MRSA, Seizures *Have you ever received a pneumonia vaccine?: Yes *Have you received a flu vaccine this season?: Yes Other Medical History: Reports: Anemia, Arthritis, Hoarseness, Other (Obesity). Denies: Blood Transfusion Reaction Laterality Cases: Bilateral: Tonsillectomy Other Surgeries: Yes: Cholecystectomy, Hysterectomy-Total, Skin Cancer Excision. No: Pacemaker Amputation: No Fractures: No - *Social History Educational Level: Completed High School Smoking Status: Never smoker Alcohol Intake: never *Occupational Status:: retired Housing: house Household Members: none *Travel in the last 8 weeks: None - Psychiatric History Expresses thoughts of harming self/others: None Suicide Plan Description: No Plan Family Hx:: Asthma, Cancer, Hypertension Review of Systems - Review of Systems Review of systems:: unable to obtain Patient reports no pain currently. Denies shortness of air or chest pain. Denies GI issues. Review of systems somewhat unreliable because of her mild confusion. Meds Home Medications Medication Instructions Recorded Confirmed Type Aspirin [Adult Low Dose Aspirin EC] 81 mg PO HS 04/25/17 09/11/18 History Clopidogrel Bisulfate [Plavix 75mg 75 mg PO DAILY 04/25/17 09/11/18 History Tab] Pravastatin Sodium [Pravachol] 40 mg PO HS 04/25/17 09/11/18 History ALPRAZolam [Xanax 0.5mg tab] 0.5 mg PO HSP PRN 04/26/17 09/11/18 History Bisoprolol Fumarate [Bisoprolol 10 mg PO DAILY 04/26/17 09/11/18 History 10mg Tablet] Lansoprazole [Prevacid] 60 mg PO DAILY 04/26/17 09/11/18 History Sucralfate [Sucralfate 1gm 1 gm PO ACHS 04/26/17 09/11/18 History Tab] Losartan Potassium 100 mg PO DAILY 04/24/18 09/11/18 History Oxybutynin Chloride [Ditropan 5mg 5 mg PO BID 04/24/18 09/11/18 History tablet] Meloxicam [Mobic 7.5mg Tab] 7.5 mg PO DAILY 08/21/18 09/11/18 History Cyanocobalamin (Vitamin B-12) 500 mcg PO DAILY 09/11/18 09/11/18 History [Vitamin B-12] Ergocalciferol (Vitamin D2) 50,000 unit PO .TWICE A WEEK 09/11/18 09/11/18 History [Vitamin D2] Furosemide [Furosemide 20mg Tab] 20 mg PO DAILY 09/11/18 09/11/18 History Hydrocod/Acet 5/325 mg [[place] 1 tab PO BID 09/11/18 09/11/18 History 5/325mg tablet] Multivitamin [Multivitamins] 1 each PO DAILY 09/11/18 09/11/18 History [place]-3/Dha/Epa/Fish Oil [Fish Oil 1,000 mg PO HS 09/11/18 09/11/18 History 1,000 mg Softgel] [place]-3S/Dha/Epa/Fish Oil [Fish 2 each PO DAILY 09/11/18 09/11/18 History Oil 1,000 mg Softgel] Sulfamethoxazole/Trimethoprim 1 tab PO BID 09/11/18 09/11/18 History [Sulfamethoxazole-Tmp Ds Tablet] Tramadol HCl [Tramadol 50mg 50 mg PO BID 09/11/18 09/11/18 History Tab] raNITIdine HCl [Ranitidine HCl] 150 mg PO BID 09/11/18 09/11/18 History Allergies Allergy/AdvReac Type Severity Reaction Status Date / Time amoxicillin [From Augmentin] Allergy Intermediate Blister Verified 08/21/18 08:26 clavulanic acid Allergy Intermediate Blister Verified 08/21/18 08:26 [From Augmentin] clarithromycin Allergy Unknown Verified 08/21/18 08:26 [CLARITHROMYCIN] codeine [CODEINE] Allergy Unknown Verified 08/21/18 08:26 diazepam [DIAZEPAM] Allergy Unknown Verified 08/21/18 08:26 Exam Vital signs and Labs for Last 24 Hours: Temp Pulse Resp BP Pulse Ox 100.5 F H 73 18 134/65 94 L 09/11/18 17:02 09/11/18 15:10 09/11/18 15:10 09/11/18 15:10 09/11/18 14:50 Laboratory Results - last 24 hr 09/11/18 11:15: WBC 10.5 D, RBC 4.58, Hgb 13.4, Hct 41.0, MCV 89.4, MCH 29.3, MCHC 32.8, RDW 14.9, Plt Count 227, MPV 7.3 L, Neut % (Auto) 89.4 H, Lymph % (Auto) 6.0 L, [place] % (Auto) 4.1, Eos % (Auto) 0.3, Baso % (Auto) 0.1, Neut # (Auto) 9.4 H, Lymph # (Auto) 0.6 L, [place] # (Auto) 0.4, Eos # (Auto) 0.0, Baso # (Auto) 0.0, Total Counted 100, Neutrophils % (Manual) 88 H, Band Neutrophils % 2.0, Lymphocytes % (Manual) 6 L, Monocytes % (Manual) 4, Platelet Estimate Normal, RBC Morphology Normal 09/11/18 11:15: Sodium 137, Potassium 3.9, Chloride 102, Carbon Dioxide 24, Anion Gap 14.9, BUN 18, Creatinine 1.37 H, Estimated Creat Clear 39, Estimated GFR 37 L, Est GFR ( Amer) 44 L, Glucose 133 H, Calcium 9.1, Total Bilirubin 0.6, AST 13 L, ALT 24, Alkaline Phosphatase 61, Total Protein 7.4, Albumin 3.2 L, Globulin 4.2 H, Albumin/Globulin Ratio 0.8 L 09/11/18 11:15: Lactate 1.3 09/11/18 11:49: Urine Color Yellow, Urine Appearance Clear, Urine pH 6.0, Ur Specific [place] 1.015, Urine Protein Trace, Urine Glucose (UA) Negative, Urine Ketones Negative, Urine Blood Negative, Urine Nitrate Negative, Urine Bilirubin Negative, Urine Urobilinogen 0.2, Ur Leukocyte Esterase Trace, Urine RBC Occasional, Urine WBC 3-5, Ur Squamous Epith Cells Occasional, Urine Bacteria Trace 09/11/18 14:37: Chlamy pneumoniae PCR Not detected, Adenovirus (PCR) Not detected, B. pertussis DNA (PCR) Not detected, Coronavirus OC43 (PCR) Not de tected, Coronavirus HKU1 (PCR) Not detected, Coronavirus 229E (PCR) Not detected, Coronavirus NL63 (PCR) Not detected, Human Metapneumovir PCR Not detected, Influenza A (H1) PCR Not detected, Influ A (H1N1/09) PCR Not detected, Influenza A (H3) PCR Not detected, Influenza Type A (PCR) Not detected, Influenza Type B (PCR) Not detected, M. pneumoniae (PCR) Not detected, Parainfluenza 1 (PCR) Not detected, Parainfluenza 2 (PCR) Not detected, Parainfluenza 3 (PCR) Not detected, Parainfluenza 4 (PCR) Not detected, RSV (PCR) Not detected, Entero/Rhino (PCR) Not detected I & O for Last 24 hours: Intake & Output 09/09/18 09/10/18 09/11/18 09/12/18 11:59 11:59 11:59 11:59 Intake Total 170 / 170 Balance 170 / 170 Weight 185 lb 187 lb Narrative: Patient is pleasant, talkative, oriented x2. Lungs have rhonchi and crackles in the right anterior field, left side clear. Heart rate regular, no murmurs. Abdomen soft, No clubbing or edema. No rash. Cranial nerves intact, globally weak but no focal deficits. Assessment and Plan (1) Change in mental status Current visit: Yes Status: Acute Category: Medical Code(s): R41.82 - Altered mental status, unspecified Probably multifactorial-fever/opioid pain pump/continuing use of opioid medications. Improving with improving fever. Pain pump was shut off-see pain clinic note. Hydrocodone as needed only through the weekend. (2) Community acquired pneumonia Current visit: Yes Status: Acute Qualifiers: Laterality: left Lung location: lower lobe of lung Qualified Code(s): J18.1 - Lobar pneumonia, unspecified organism Category: Medical Code(s): J18.9 - Pneumonia, unspecified organism IV antibiotics started. Seems to be improving. Respiratory PCR negative. Await culture results. (3) Hypertension, accelerated Current visit: No Status: Chronic Category: Medical Code(s): I10 - Essential (primary) hypertension
--- NOTE | 2018-09-12 07:13 | Progress Note ---
Internal Medicine - PN: Subj *Date: 09/12/18 *Time: 11:58 Interval history: Ms. leone had no acute events overnight. Tolerating antibiotics well. No acute respiratory distress. Still on oxygen but only 1 L this morning with normal oxygen saturation. Tolerating regular intake. Denies nausea, vomiting, diarrhea, chest pain. Sore where she fell. Denies any confusion. States she is still pretty weak and has not gotten up from bed yet Exam Vital signs and Labs for Last 24 Hours: Temp Pulse Resp BP Pulse Ox 98.4 F 66 16 111/55 L 94 L 09/12/18 04:00 09/12/18 04:00 09/12/18 04:00 09/12/18 04:00 09/12/18 04:00 Laboratory Results - last 24 hr 09/11/18 11:15: WBC 10.5 D, RBC 4.58, Hgb 13.4, Hct 41.0, MCV 89.4, MCH 29.3, MCHC 32.8, RDW 14.9, Plt Count 227, MPV 7.3 L, Neut % (Auto) 89.4 H, Lymph % (Auto) 6.0 L, [place] % (Auto) 4.1, Eos % (Auto) 0.3, Baso % (Auto) 0.1, Neut # (Auto) 9.4 H, Lymph # (Auto) 0.6 L, [place] # (Auto) 0.4, Eos # (Auto) 0.0, Baso # (Auto) 0.0, Total Counted 100, Neutrophils % (Manual) 88 H, Band Neutrophils % 2.0, Lymphocytes % (Manual) 6 L, Monocytes % (Manual) 4, Platelet Estimate Normal, RBC Morphology Normal 09/11/18 11:15: Sodium 137, Potassium 3.9, Chloride 102, Carbon Dioxide 24, Anion Gap 14.9, BUN 18, Creatinine 1.37 H, Estimated Creat Clear 39, Estimated GFR 37 L, Est GFR ( Amer) 44 L, Glucose 133 H, Calcium 9.1, Total Bilirubin 0.6, AST 13 L, ALT 24, Alkaline Phosphatase 61, Total Protein 7.4, Albumin 3.2 L, Globulin 4.2 H, Albumin/Globulin Ratio 0.8 L 09/11/18 11:15: Lactate 1.3 09/11/18 11:49: Urine Color Yellow, Urine Appearance Clear, Urine pH 6.0, Ur Specific [place] 1.015, Urine Protein Trace, Urine Glucose (UA) Negative, Urine Ketones Negative, Urine Blood Negative, Urine Nitrate Negative, Urine Bilirubin Negative, Urine Urobilinogen 0.2, Ur Leukocyte Esterase Trace, Urine RBC Occasional, Urine WBC 3-5, Ur Squamous Epith Cells Occasional, Urine Bacteria Trace 09/11/18 14:37: Chlamy pneumoniae PCR Not detected, Adenovirus (PCR) Not detected, B. pertussis DNA (PCR) Not detected, Coronavirus OC43 (PCR) Not detected, Coronavirus HKU1 (PCR) Not detected, Coronavirus 229E (PCR) Not detected, Coronavirus NL63 (PCR) Not detected, Human Metapneumovir PCR Not detected, Influenza A (H1) PCR Not detected, Influ A (H1N1/09) PCR Not detected, Influenza A (H3) PCR Not detected, Influenza Type A (PCR) Not detected, Influenza Type B (PCR) Not detected, M. pneumoniae (PCR) Not detected, Parainfluenza 1 (PCR) Not detected, Parainfluenza 2 (PCR) Not detected, Parainfluenza 3 (PCR) Not detected, Parainfluenza 4 (PCR) Not detected, RSV (PCR) Not detected, Entero/Rhino (PCR) Not detected I & O for Last 24 hours: Intake & Output 09/09/18 09/10/18 09/11/18 09/12/18 23:59 23:59 23:59 23:59 Intake Total 487 / 487 Output Total 150 / 150 150 / 150 Balance 337 / 337 -150 / -150 Weight 84.822 kg 86.239 kg Narrative: Patient is pleasant, talkative, oriented x2. Lungs with interval improvement in rhonchi and crackles in the right anterior field, left side clear. Heart rate regular, no murmurs. Abdomen soft, No clubbing or edema. No rash. Multiple ecchymoses on left side of body Cranial nerves intact, globally weak but no focal deficits. Assessment and Plan (1) Change in mental status Current visit: Yes Status: Acute Category: Medical Code(s): R41.82 - Altered mental status, unspecified (2) Community acquired pneumonia Current visit: Yes Status: Acute Qualifiers: Laterality: left Lung location: lower lobe of lung Qualified Code(s): J18.1 - Lobar pneumonia, unspecified organism Category: Medical Code(s): J18.9 - Pneumonia, unspecified organism (3) Hypertension, accelerated Current visit: No Status: Chronic Category: Medical Code(s): I10 - Essential (primary) hypertension - Assessment and plan all Dx Assessment and Plan for all problems:: Continue to wean oxygen today. Continue to monitor labs including blood culture. Continue antibiotics as ordered. Instructed to get up out of bed today at least twice, to bedside chair. Ambulate as tolerated with assistance of nursing. If continues to improve throughout the course of today, will likely discharge home tomorrow.
[2018-09-12 07:44] LABS: Basophils % 0.3 % (0.1-2.0); Eosinophils % 0.7 % (0.1-12.0); Hematocrit 35.3 % (37.0-47.0); Lymphocytes # 0.7 K/mm3 (0.7-4.5); Lymphocytes % 11.4 % (10-50); Mean Corpuscular HGB Conc 33.1 g/dL (31.8-35.4); Mean Corpuscular Hemoglobin 30.3 pg (27.0-31.2); Mean Corpuscular Volume 91.7 fl (81-99); Monocytes # 0.3 K/mm3 (0.1-1.0); Monocytes % 5.3 % (1.7-9.3); Neutrophils # 4.7 K/mm3 (1.8-7.8); Neutrophils % 82.3 % (37.0-80.0); Platelet Count 173 K/mm3 (142-424); Red Blood Count 3.85 M/mm3 (4.20-5.40); Red Cell Distribution Width 14.9 % (11.5-17.5); White Blood Count 5.7 K/mm3 (4.8-10.8)
[2018-09-12 08:01] LABS: Anion Gap 12.9 mEq/L (5-15); Calcium 8.4 mg/dL (8.5-10.1); Potassium 3.9 mmoL/L (3.5-5.1)
[2018-09-12 08:17] LABS: Hemoglobin 11.7 g/dL (12.2-16.2)
--- NOTE | 2018-09-12 11:33 | Pharmacy Consult Notes ---
[facility] Pharmacy VTE Monitoring - Patient Demographics Admission date: 09/12/18 Report Date: 09/12/18 Time: 11:32 Allergies/Adverse Reactions: Patient Allergies amoxicillin [From Augmentin] Allergy (Intermediate, Verified 08/21/18 08:26) Blister clavulanic acid [From Augmentin] Allergy (Intermediate, Verified 08/21/18 08:26) Blister clarithromycin [CLARITHROMYCIN] Allergy (Unknown, Verified 08/21/18 08:26) codeine [CODEINE] Allergy (Unknown, Verified 08/21/18 08:26) diazepam [DIAZEPAM] Allergy (Unknown, Verified 08/21/18 08:26) Height: 1.63 m Weight: 86.239 kg Patient Problems: Current Active Problems (Updated 09/11/18 @ 17:53 by Michel Pineda MD) Community acquired pneumonia (Acute) Fall (Acute) Contusion of left hip (Acute) Change in mental status (Acute) - VTE Risk Labs: VTE Related Lab Results Hgb 11.7 g/dL (12.2-16.2) L D 09/12/18 07:15 Hct 35.3 % (37.0-47.0) L 09/12/18 07:15 Plt Count 173 K/mm3 (142-424) 09/12/18 07:15 BUN 20 mg/dL (7-18) H 09/12/18 07:15 Creatinine 1.49 mg/dL (0.55-1.02) H 09/12/18 07:15 Estimated Creat Clear 37 mL/min (50-200) 09/12/18 07:15 VTE Score: 4 VTE Risk Level: Low Risk Clinical Trial Participant: No - Prophylaxis Location of Applied Device: Refused - VTE Diagnosis Confirmed Comment: FAUSTO DOBBS ORDERED
[2018-09-13 07:28] LABS: Basophils % 0.4 % (0.1-2.0); Eosinophils # 0.2 K/mm3 (0.0-0.4); Eosinophils % 3.7 % (0.1-12.0); Hematocrit 33.1 % (37.0-47.0); Hemoglobin 10.8 g/dL (12.2-16.2); Lymphocytes # 0.9 K/mm3 (0.7-4.5); Lymphocytes % 20.8 % (10-50); Mean Corpuscular HGB Conc 32.6 g/dL (31.8-35.4); Mean Corpuscular Hemoglobin 29.4 pg (27.0-31.2); Mean Corpuscular Volume 90.4 fl (81-99); Mean Platelet Volume 7.2 fl (7.4-10.4); Monocytes # 0.4 K/mm3 (0.1-1.0); Monocytes % 9.7 % (1.7-9.3); Neutrophils # 2.7 K/mm3 (1.8-7.8); Neutrophils % 65.3 % (37.0-80.0); Platelet Count 186 K/mm3 (142-424); Red Blood Count 3.66 M/mm3 (4.20-5.40); Red Cell Distribution Width 14.8 % (11.5-17.5); White Blood Count 4.2 K/mm3 (4.8-10.8)
[2018-09-13 07:51] LABS: Anion Gap 12.1 mEq/L (5-15); Potassium 4.1 mmoL/L (3.5-5.1)
[2018-09-13 08:00] LABS: Calcium 8.1 mg/dL (8.5-10.1)
--- NOTE | 2018-09-13 11:40 | Progress Note ---
Internal Medicine - PN: Subj *Date: 09/13/18 *Time: 11:37 Interval history: Ms. leone is doing better over the past 24 hours but still having significant pain. Able to ambulate this morning for the first time with assistance to the bedside chair. Feeling stronger in her legs but still quite sore. Denies any nausea, chest pain, shortness of breath. Sons at bedside and updated of plan today. Exam Vital signs and Labs for Last 24 Hours: Temp Pulse Resp BP Pulse Ox 97.9 F 68 18 127/68 95 09/13/18 10:59 09/13/18 10:59 09/13/18 10:59 09/13/18 10:59 09/13/18 10:59 Laboratory Results - last 24 hr 09/13/18 06:25: WBC 4.2 L D, RBC 3.66 L, Hgb 10.8 L, Hct 33.1 L, MCV 90.4, MCH 29.4, MCHC 32.6, RDW 14.8, Plt Count 186, MPV 7.2 L, Neut % (Auto) 65.3, Lymph % (Auto) 20.8, [place] % (Auto) 9.7 H, Eos % (Auto) 3.7, Baso % (Auto) 0.4, Neut # (Auto) 2.7, Lymph # (Auto) 0.9, [place] # (Auto) 0.4, Eos # (Auto) 0.2, Baso # (Auto) 0.0 09/13/18 06:25: Sodium 139, Potassium 4.1, Chloride 108 H, Carbon Dioxide 23, Anion Gap 12.1, BUN 25 H, Creatinine 1.37 H, Estimated Creat Clear 42, Estimated GFR 37 L, Est GFR ( Amer) 44 L, Glucose 99, Calcium 8.1 L I & O for Last 24 hours: Intake & Output 09/10/18 09/11/18 09/12/18 09/13/18 23:59 23:59 23:59 23:59 Intake Total 487 / 487 3072 / 3072 240 / 240 Output Total 150 / 150 550 / 550 Balance 337 / 337 2522 / 2522 240 / 240 Weight 84.822 kg 86.239 kg 89.499 kg Microbiology Reports for the Last 24 Hours: Microbiology 09/11/18 11:15 Blood Blood Culture - Preliminary NO GROWTH AFTER 48 HOURS 09/11/18 11:15 Blood Blood Culture - Preliminary NO GROWTH AFTER 48 HOURS Narrative: Patient is pleasant, talkative, oriented x2. Lungs with interval improvement in rhonchi and crackles in the right anterior field, left side clear. Heart rate regular, no murmurs. Abdomen soft, No clubbing or edema. No rash. Multiple ecchymoses on left upper extremity. Left leg with musculoskeletal tenderness to palpation. Strength 4 5 in bilateral lower extremities. Cranial nerves intact, globally weak but no focal deficits. Assessment and Plan (1) Change in mental status Current visit: Yes Status: Acute Category: Medical Code(s): R41.82 - Altered mental status, unspecified (2) Community acquired pneumonia Current visit: Yes Status: Acute Qualifiers: Laterality: left Lung location: lower lobe of lung Qualified Code(s): J18.1 - Lobar pneumonia, unspecified organism Category: Medical Code(s): J18.9 - Pneumonia, unspecified organism (3) Hypertension, accelerated Current visit: No Status: Chronic Category: Medical Code(s): I10 - Essential (primary) hypertension - Assessment and plan all Dx Assessment and Plan for all problems:: Patient showing interval improvement, weaned off oxygen overnight. Still very weak and sore. Increase pain regimen today to achieve better control. Continues to require management inpatient for her pain control and IV antibiotics. If able to achieve good pain control with an oral regimen given the need to turn off her pain pump on admission, will be stable for discharge home tomorrow. At that time will transition to oral antibiotics for completion of her pneumonia treatment course. Continues to require inpatient management.
--- NOTE | 2018-09-13 15:01 | Discharge Summary ---
General - General Admission date:: 09/11/18 Discharge date: 09/14/18 HPI HPI: 87-year-old white female with long past medical history but fairly good functional status, who 2 days ago had pain pump implanted without problems. She was found to be significantly confused this morning, nonambulatory and febrile. Brought to the emergency department. Was found to have pneumonia on roentgenogram, and started on IV antibiotics. In talking to the family she has continued to take her opiate pain medication with pain pump started, and there is concerned about possible oversedation. This afternoon on exam she is brighter and more talkative according to family members. She states that she feels "much better than when I got here." Hospital Course Hospital Course: Ms. Archer is an 87-year-old female admitted after a fall found to have a pneumonia. Initially treated on IV antibiotics with defervescence of her symptoms. Was weaned off submental oxygen to room air with good tolerance. Soreness improved from her fall and was found through work-up to not have any fractures. Treated for increased pain with resumption of her home pain regimen in addition of some as needed hydrocodone doses. Tolerated well. Ambulating independently. Meeting criteria for discharge home. Plan to finish antibiotic course orally at home. Instructed to follow-up with Dr. Irving for pain pump resumption as an outpatient. Plan to continue oral pain regimen in the meantime. Will defer oral and pump combo to Dr. Irving however suspect it would be of benefit to stop oral at the time of initiation of her pain pump due to the events leading to her admission and her fall. Denies fevers, chest pain, shortness of breath. Had some intermittent nausea overnight that is resolved. Medically stable for discharge Objective Vital signs: Temp Pulse Resp BP Pulse Ox 97.9 F 68 18 127/68 95 09/13/18 10:59 09/13/18 10:59 09/13/18 10:59 09/13/18 10:59 09/13/18 10:59 Narrative: Patient is pleasant, talkative, oriented x3. Lungs clear to auscultation bilaterally with no rhonchi or crackles. Heart rate regular, no murmurs. Abdomen soft, No clubbing or edema. No rash. Multiple ecchymoses on left upper extremity. Left leg with musculoskeletal tenderness to palpation. Strength 4 5 in bilateral lower extremities. Cranial nerves intact, globally weak but no focal deficits. Results Labs on day of discharge: Labs from last 24 hours 09/13/18 09/13/18 06:25 06:25 WBC 4.2 L D RBC 3.66 L Hgb 10.8 L Hct 33.1 L MCV 90.4 MCH 29.4 MCHC 32.6 RDW 14.8 Plt Count 186 MPV 7.2 L Neut % (Auto) 65.3 Lymph % (Auto) 20.8 [place] % (Auto) 9.7 H Eos % (Auto) 3.7 Baso % (Auto) 0.4 Neut # (Auto) 2.7 Lymph # (Auto) 0.9 [place] # (Auto) 0.4 Eos # (Auto) 0.2 Baso # (Auto) 0.0 Sodium 139 Potassium 4.1 Chloride 108 H Carbon Dioxide 23 Anion Gap 12.1 BUN 25 H Creatinine 1.37 H Estimated Creat Clear 42 Estimated GFR 37 L Est GFR ( Amer) 44 L Glucose 99 Calcium 8.1 L Preliminary micro results at discharge 09/11/18 11:15 Blood Culture - Preliminary Blood NO GROWTH AFTER 48 HOURS 09/11/18 11:15 Blood Culture - Preliminary Blood NO GROWTH AFTER 48 HOURS DS: Diagnosis - Discharge Diagnosis (1) Change in mental status Status: Resolved (2) Community acquired pneumonia Status: Acute (3) Hypertension, accelerated Status: Chronic Discharge Plan - Patient Discharge Instructions ACTIVITY: Continue current activity DIET: continue same diet Patient Instructions: Pneumonia-Adult - Follow up Plan Follow up with: Ryan Stout MD [Staff Physician] - 1 week Disposition: Home, Self-Longterm Medications: Home Medications Medication Instructions Recorded Confirmed Type Aspirin [Adult Low Dose Aspirin EC] 81 mg PO HS 04/25/17 09/11/18 History Clopidogrel Bisulfate [Plavix 75mg 75 mg PO DAILY 04/25/17 09/11/18 History Tab] Pravastatin Sodium [Pravachol] 40 mg PO HS 04/25/17 09/11/18 History ALPRAZolam [Xanax 0.5mg tab] 0.5 mg PO HSP PRN 04/26/17 09/11/18 History Bisoprolol Fumarate [Bisoprolol 10 mg PO DAILY 04/26/17 09/11/18 History 10mg Tablet] Lansoprazole [Prevacid] 60 mg PO DAILY 04/26/17 09/11/18 History Sucralfate [Sucralfate 1gm 1 gm PO ACHS 04/26/17 09/11/18 History Tab] Losartan Potassium 100 mg PO DAILY 04/24/18 09/11/18 History Oxybutynin Chloride [Ditropan 5mg 5 mg PO BID 04/24/18 09/11/18 History tablet] Meloxicam [Mobic 7.5mg Tab] 7.5 mg PO DAILY 08/21/18 09/11/18 History Cyanocobalamin (Vitamin B-12) 500 mcg PO DAILY 09/11/18 09/11/18 History [Vitamin B-12] Ergocalciferol (Vitamin D2) 50,000 unit PO .TWICE A WEEK 09/11/18 09/11/18 History [Vitamin D2] Furosemide [Furosemide 20mg Tab] 20 mg PO DAILY 09/11/18 09/11/18 History Hydrocod/Acet 5/325 mg [[place] 1 tab PO BID 09/11/18 09/11/18 History 5/325mg tablet] Multivitamin [Multivitamins] 1 each PO DAILY 09/11/18 09/11/18 History [place]-3/Dha/Epa/Fish Oil [Fish Oil 1,000 mg PO HS 09/11/18 09/11/18 History 1,000 mg Softgel] [place]-3S/Dha/Epa/Fish Oil [Fish 2 each PO DAILY 09/11/18 09/11/18 History Oil 1,000 mg Softgel] Sulfamethoxazole/Trimethoprim 1 tab PO BID 09/11/18 09/11/18 History [Sulfamethoxazole-Tmp Ds Tablet] Tramadol HCl [Tramadol 50mg 50 mg PO BID 09/11/18 09/11/18 History Tab] raNITIdine HCl [Ranitidine HCl] 150 mg PO BID 09/11/18 09/11/18 History Cefdinir [Omnicef 300mg Capsule] 300 mg PO BID 4 Days #8 cap 09/13/18 Rx Hydrocodone/Acetaminophen 1 each PO Q6HP PRN 5 Days #15 09/14/18 Rx [Hydrocodone-Acetamin 5-325 mg] tablet Prescriptions/Medication Reconciliation: New Cefdinir [Omnicef 300mg Capsule] 300 mg PO BID 4 Days #8 cap Continued Aspirin [Adult Low Dose Aspirin EC] 81 mg PO HS Clopidogrel Bisulfate [Plavix 75mg Tab] 75 mg PO DAILY Lansoprazole [Prevacid] 60 mg PO DAILY ALPRAZolam [Xanax 0.5mg tab] 0.5 mg PO HSP PRN PRN Reason: Anxiety Sucralfate [Sucralfate 1gm Tab] 1 gm PO ACHS Bisoprolol Fumarate [Bisoprolol 10mg Tablet] 10 mg PO DAILY Losartan Potassium 100 mg PO DAILY Meloxicam [Mobic 7.5mg Tab] 7.5 mg PO DAILY Sulfamethoxazole/Trimethoprim [Sulfamethoxazole-Tmp Ds Tablet] 1 tab PO BID Hydrocod/Acet 5/325 mg [[place] 5/325mg tablet] 1 tab PO BID Furosemide [Furosemide 20mg Tab] 20 mg PO DAILY [place]-3S/Dha/Epa/Fish Oil [Fish Oil 1,000 mg Softgel] 2 each PO DAILY Cyanocobalamin (Vitamin B-12) [Vitamin B-12] 500 mcg PO DAILY Ergocalciferol (Vitamin D2) [Vitamin D2] 50,000 unit PO .TWICE A WEEK Multivitamin [Multivitamins] 1 each PO DAILY [place]-3/Dha/Epa/Fish Oil [Fish Oil 1,000 mg Softgel] 1,000 mg PO HS Pravastatin Sodium [Pravachol] 40 mg PO HS Oxybutynin Chloride [Ditropan 5mg tablet] 5 mg PO BID raNITIdine HCl [Ranitidine HCl] 150 mg PO BID Tramadol HCl [Tramadol 50mg Tab] 50 mg PO BID
[2018-09-14 06:58] LABS: Basophils % 0.4 % (0.1-2.0); Eosinophils # 0.2 K/mm3 (0.0-0.4); Eosinophils % 5.8 % (0.1-12.0); Hematocrit 34.7 % (37.0-47.0); Hemoglobin 11.1 g/dL (12.2-16.2); Lymphocytes # 0.6 K/mm3 (0.7-4.5); Lymphocytes % 15.6 % (10-50); Mean Corpuscular Volume 90.4 fl (81-99); Mean Platelet Volume 7.3 fl (7.4-10.4); Monocytes # 0.3 K/mm3 (0.1-1.0); Monocytes % 7.1 % (1.7-9.3); Neutrophils # 2.9 K/mm3 (1.8-7.8); Platelet Count 179 K/mm3 (142-424); Red Blood Count 3.84 M/mm3 (4.20-5.40); Red Cell Distribution Width 14.6 % (11.5-17.5); White Blood Count 4.1 K/mm3 (4.8-10.8)
[2018-09-14 07:05] LABS: Albumin Level 2.2 gm/dL (3.4-5.0); Albumin/Globulin Ratio 0.6 (1.1-1.8); Anion Gap 12.5 mEq/L (5-15); Bilirubin,Total 0.2 mg/dL (0.2-1.0); Globulin 3.5 gm/dl (1.3-3.2); Potassium 4.5 mmoL/L (3.5-5.1); Total Protein,Serum 5.7 gm/dL (6.4-8.2)
== END 2018-09-14 11:20 | disposition home or self-care (01) | DRG 195 ==
LOC: SUPCPDRO → ER 11:01 → 2ND 13:55
PROVIDERS: ADMIT Internal Medicine Adolescent Medicine; ATTEND Internal Medicine Adolescent Medicine
CPT/HCPCS: 70450; 71010; 71045; 73502; 73552; 80048; 80053; 81001; 83605; 85007; 85025; 87040; 87486; 87581; 87633; 87798; 93005; 94761; 96374; 99285; C1755; C1772; J0456; J2405; J3370

== ENCOUNTER 2019-03-27 11:21 | Inpatient (IN) ==
[2019-03-27 11:31] LABS: ABG Base Excess 0.3 mmol/L (-2.4-2.3); ABG HCO3 24.2 mmhg (22.0-26.0); ABG Oxygen Saturation 96 % (90-100); ABG PCO2 35.6 mmhg (35.0-45.0); ABG PH 7.45 mmol/L (7.35-7.45); ABG PO2 80.1 mmhg (80-100); ABG TCO2 25.3 mmhg (23-27)
[2019-03-27 11:33] LABS: Allen's Test Patient Unable; Oxygen ROOM AIR %
--- NOTE | 2019-03-27 11:34 | Emergency Department Note ---
ED Disposition Clinical Impression: Altered mental status, Urinary tract infection, Elevated troponin I level, Hypertension, Hyperlipidemia, Anemia, GERD (gastroesophageal reflux disease), Osteoarthritis, History of TIA (transient ischemic attack) Disposition: Admitted As Inpatient Condition on Discharge: Serious Referrals: Michel Pineda MD [Primary Care Provider] - - Critical Care Critical Care Time: No Attestation: On 03/27/19, the high probability of a clinically significant, sudden or life t hreatening deterioration of the following system(s) required my full and direct attention, intervention and personal management. The time I documented below is in addition to time spent performing reported procedures but includes the following listed in this critical care notation. Medical Decision Making - Medical Records Medical records reviewed: Yes: I reviewed the patient's medical records. - Luis Inquiry Pt receiving controlled substance: No Vital Signs: 03/27/19 11:23 03/27/19 11:52 Temperature 100.3 F H Temperature Source Rectal Pulse Rate [Left Radial] 80 74 Respiratory Rate 16 Blood Pressure [Right Arm] 182/92 H 172/77 H Blood Pressure Mean [Right Arm] 122 108 Blood Pressure Source [Right Arm] Manual Cuff/ Auscultation Blood Pressure Position [Right Arm] Sitting 02 Sat by Pulse Oximetry 94 L Oxygen Delivery Method Nasal Cannula - Lab Data Lab results reviewed: Yes: I reviewed the patient's lab results. Lab Results 03/27/19 11:15: WBC 15.0 H, RBC 5.01, Hgb 13.8, Hct 44.0, MCV 87.9, MCH 27.6, MCHC 31.4 L, RDW 15.6, Plt Count 224, MPV 8.0, Neut % (Auto) 88.8 H, Lymph % (Auto) 7.2 L, [place] % (Auto) 3.6, Eos % (Auto) 0.2, Baso % (Auto) 0.2, Neut # (Auto) 13.4 H, Lymph # (Auto) 1.1, [place] # (Auto) 0.6, Eos # (Auto) 0.0, Baso # (Auto) 0.0, Total Counted 100, Neutrophils % (Manual) 89 H, Lymphocytes % (M anual) 8 L, Monocytes % (Manual) 3, Platelet Estimate Normal, RBC Morphology Normal 03/27/19 11:15: Troponin I 0.31 H 03/27/19 11:15: Urine Opiates Screen Negative, Urine Methadone Screen Negative, Ur Barbituates Screen Negative, Ur Phencyclidine Scrn Negative, Ur Amphetamines Screen Negative, U Benzodiazepines Scrn Positive H, Urine Cocaine Screen Negative, U Marijuana (THC) Screen Negative 03/27/19 11:15: Sodium 141, Potassium 3.6, Chloride 101, Carbon Dioxide 29, Anion Gap 14.6, BUN 24 H, Creatinine 1.29 H, Estimated Creat Clear 40, Estimated GFR 39 L, Est GFR ( Amer) 47 L, Glucose 142 H, Calcium 8.9, Total Bilirubin 0.6, AST 21, ALT 18, Alkaline Phosphatase 61, Total Protein 7.2, Albumin 3.5, Globulin 3.7 H, Albumin/Globulin Ratio 0.9 L, TSH 1.40 03/27/19 11:25: Specimen Source Right radial, O2 % Room air, ABG pH 7.45, ABG pCO2 35.6, ABG pO2 80.1, ABG HCO3 24.2, ABG Total CO2 25.3, ABG O2 Saturation 96, ABG Base Excess 0.3, Santy Test Patient unable 03/27/19 11:36: Urine Color Yellow, Urine Appearance Clear, Urine pH 8.0, Ur Specific [place] 1.010, Urine Protein Trace, Urine Glucose (UA) Negative, Urine Ketones Negative, Urine Blood Negative, Urine Nitrate Negative, Urine Bilirubin Negative, Urine Urobilinogen 0.2, Ur Leukocyte Esterase Trace, Urine RBC Occ asional, Urine WBC 3-5, Ur Squamous Epith Cells Occasional, Urine Bacteria 1+ 03/27/19 12:15: Lactate 1.3 03/27/19 13:54: Troponin I 0.41 H Result diagrams: 03/27/19 11:15 03/27/19 11:15 Orders (Tests/Meds): ED MEDICATIONS Discontinued Medications Generic Name Dose Route Start Last Admin Trade Name Claudia PRN Reason Stop Dose Admin Acetaminophen 1,000 mg 03/27/19 14:05 03/27/19 14:10 Tylenol 500mg Tablet PO 03/27/19 14:06 1,000 mg ONCE ONE Administration Aspirin 324 mg 03/27/19 12:51 03/27/19 12:54 Aspirin 81mg Chewable Tablet PO 03/27/19 12:52 324 mg ONCE ONE Administration Meropenem 1 gm/ Sodium 100 mls @ 100 mls/hr 03/27/19 13:30 03/27/19 14:10 Chloride IV 03/27/19 13:31 100 mls/hr ONCE ONE Administration Protocol Ondansetron HCl 4 mg 03/27/19 14:09 03/27/19 14:10 Zofran 4mg/2ml Vial IV 03/27/19 14:10 4 mg ONCE ONE Administration ORDERS Category Date Time Status Troponin I Q3H Lab 03/27/19 14:30 Ordered Troponin I Q3H Lab 03/27/19 17:30 Ordered Blood Culture Stat Micro 03/27/19 11:36 Received - ECG Data Tracing #1 I reviewed this ECG and interpreted as documented below: Sinus rhythm at 87 bpm. Right bundle branch block, left anterior fascicular block, left ventricular hypertrophy. ECG initial impression date: 03/27/19 ECG initial impression time: 11:23 Normal Sinus Rhythm: Yes Conduction abnormalities present: LAFB, RBBB Chamber hypertrophy present: LVH Altered Mental Status HPI - General Chief Complaint: Altered Mental Status Stated Complaint: unresponsive Time Seen by Provider: 03/27/19 11:25 Mode of Arrival: EMS Limitations: No Limitations Description of Symptoms (Recalled from ER Triage Doc. by RN): to ed per squad report pt found at home incoherent by family pt responds to verbal stimuli non verbal. follows commands. pt unable to lift arms off bed. family states talked to her on phone lastnight at approx 8pm and "was normal" called today about 10am and pt was confused. 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 MD complaint: altered mental status, confusion, weakness Onset (ago): unknown Timing confirmed by: family member Severity: severe Consistency of symptoms: constant Associated symptoms: denies other symptoms - Related Data Home Medications Medication Instructions Recorded Confirmed Aspirin [Adult Low Dose Aspirin EC] 81 mg PO HS 04/25/17 03/27/19 Clopidogrel Bisulfate [Plavix 75mg 75 mg PO DAILY 04/25/17 03/27/19 Tab] Pravastatin Sodium [Pravachol] 40 mg PO HS 04/25/17 03/27/19 ALPRAZolam [Xanax 0.5mg tab] 0.5 mg PO HSP PRN 04/26/17 03/27/19 Lansoprazole [Prevacid] 60 mg PO DAILY 04/26/17 03/27/19 Sucralfate [Sucralfate 1gm 1 gm PO ACHS 04/26/17 03/27/19 Tab] bisoproloL fumarate [Bisoprolol 10 mg PO DAILY 04/26/17 03/27/19 10mg Tablet] Losartan Potassium 100 mg PO DAILY 04/24/18 03/27/19 Oxybutynin Chloride [Ditropan 5mg 5 mg PO BID 04/24/18 03/27/19 tablet] Meloxicam [Mobic 7.5mg Tab] 7.5 mg PO DAILY 08/21/18 03/27/19 Cyanocobalamin (Vitamin B-12) 500 mcg PO DAILY 09/11/18 03/27/19 [Vitamin B-12] Ergocalciferol (Vitamin D2) 50,000 unit PO .TWICE A WEEK 09/11/18 03/27/19 [Vitamin D2] Furosemide [Furosemide 20mg Tab] 20 mg PO DAILY 09/11/18 03/27/19 Multivitamin [Multivitamins] 1 each PO DAILY 09/11/18 03/27/19 [place]-3/Dha/Epa/Fish Oil [Fish Oil 1,000 mg PO HS 09/11/18 03/27/19 1,000 mg Softgel] raNITIdine HCl [Ranitidine HCl] 150 mg PO BID 09/11/18 03/27/19 Allergies Allergy/AdvReac Type Severity Reaction Status Date / Time amoxicillin [From Augmentin] Allergy Intermediate Blister Verified 03/02/19 13:31 clavulanic acid Allergy Intermediate Blister Verified 03/02/19 13:31 [From Augmentin] clarithromycin Allergy Unknown Verified 03/02/19 13:31 [CLARITHROMYCIN] codeine [CODEINE] Allergy Unknown Verified 03/02/19 13:31 diazepam [DIAZEPAM] Allergy Unknown Verified 03/02/19 13:31 [facility] History - Hepatitis A Screen Drug use history?: No High risk sexual behaviors?: No History of sexually transmitted infection?: No Currently employed?: No Childcare worker?: No Do you have indoor plumbing?: Yes Do you have electricity?: Yes Attestation statement:: This patient has been screened for Hepatitis A risk factors. I have reviewed the patient's past medical history: Yes Medical History: Reports:: Gastroesophageal Reflux Disease(GERD), Hyperlipidemia, Hypertension, Transient Ischemic Attacks (TIA) Denies:: Cancer, Diabetes Mellitus Type 1, Diabetes Mellitus Type 2, Internal Pacemaker, MRSA, Seizures Other Medical History: Reports: Anemia, Arthritis, Hoarseness, Other (Obesity). Denies: Blood Transfusion Reaction Comment: Illnesses-hypertension, hypercholesterolemia, GERD, anxiety Laterality Cases: Left: Arthroscopy Shoulder, Bilateral: Tonsillectomy Other Surgeries: Yes: Cholecystectomy, Hysterectomy-Total, Skin Cancer Excision. No: Pacemaker Amputation: No Fractures: No Comment: Operations-hysterectomy, skin cancer removals, cholecystectomy, bladder suspension, tonsillectomy, ear surgery - Social History Smoking Status: Never smoker Alcohol Intake: never Occupational Status: other Housing: house Household Members: none Family Hx:: Asthma, Cancer, Hypertension ROS Obtained: Yes Systems reviewed as appropriate & no additional complaints - Constitutional Constitutional: Reports fatigue, Reports malaise, Reports weakness - Eyes Eyes: Reports system reviewed and no additional complaints, except as docu - ENT Ears, Nose, Mouth, and Throat: Reports system reviewed and no additional complaints, except as docu - Cardiovascular Cardiovascular: Reports system reviewed and no additional complaints, except as docu - Respiratory Respiratory: Yes system reviewed and no additional complaints, except as docu - Gastrointestinal Gastrointestingal: Reports: system reviewed and no additional complaints, except as docu - Genitourinary Female Genitourinary: Reports system reviewed and no additional complaints, except as docu - Musculoskeletal Musculoskeletal: Reports system reviewed and no additional complaints, except as docu - Integumentary/Breasts Skin/Breast: Reports system reviewed and no additional complaints, except as docu - Neurologic Neurologic: Reports confusion - Endocrine Endocrine: Reports system reviewed and no additional complaints, except as docu - Hematologic/Lymphatic Henatologic/Lymphatic: Reports system reviewed and no additional complaints, except as docu - Allergic/Immunologic Allergic/Immunologic: Reports system reviewed and no additional complaints, except as docu Physical Exam - General General appearance: lethargic - Head Head exam: atraumatic, normocephalic, normal inspection - Eye Eye exam: Present: normal appearance, PERRL, EOMI - ENT ENT exam: Present: normal exam, normal oropharynx, mucous membranes moist, TM's normal bilaterally, normal external ear exam - Chest Chest inspection: Present: normal inspection, symmetric chest wall rise. Absent: tenderness - Respiratory Respiratory exam: Present: normal lung sounds bilaterally. Absent: respiratory distress - Cardiovascular Cardiovascular exam: Present: regular rate, normal rhythm, systolic murmur - Abdominal Exam Abdominal exam: Present: soft, normal bowel sounds. Absent: distention, tenderness, guarding - Extremities Exam Extremities exam: Present: normal inspection, full ROM, normal capillary refill. Absent: calf tenderness - Back Exam Back exam: Present: normal inspection - Neurological Exam Neurological exam: Present: CN II-XII intact. Absent: motor sensory deficit - Expanded Neurological Exam Patient oriented to: Present: person, place. Absent: time Coma scale eye opening: Spontaneous Coma scale motor response: Obeys commands Coma scale verbal response: Oriented Coma scale total: 15 - Psychiatric Psychiatric exam: Present: flat affect - Skin Skin exam: Present: warm, dry, intact, normal color
[2019-03-27 11:43] LABS: Microscopic, Urine URINE MICROSCOPIC (MICROSCOPIC)
[2019-03-27 11:44] LABS: Appearance,Urine CLEAR (Clear); Bilirubin,Urine Negative (Negative); Blood, Urine Negative (Negative); Color,Urine YELLOW (Yellow); Glucose,Urine (UA) Negative (Negative); Ketones,Urine Negative (Negative); Leukocyte Esterase,Urine TRACE (Negative); Protein,Urine TRACE (Negative); Urobilinogen,Urine 0.2 EU/dl (0.2)
[2019-03-27 11:47] LABS: Basophils % 0.2 % (0.1-2.0); Eosinophils % 0.2 % (0.1-12.0); Hemoglobin 13.8 g/dL (12.2-16.2); Lymphocytes # 1.1 K/mm3 (0.7-4.5); Lymphocytes % 7.2 % (10-50); Mean Corpuscular HGB Conc 31.4 g/dL (31.8-35.4); Mean Corpuscular Volume 87.9 fl (81-99); Monocytes # 0.6 K/mm3 (0.1-1.0); Monocytes % 3.6 % (1.7-9.3); Neutrophils # 13.4 K/mm3 (1.8-7.8); Neutrophils % 88.8 % (37.0-80.0); Platelet Count 224 K/mm3 (142-424); Red Blood Count 5.01 M/mm3 (4.20-5.40); Red Cell Distribution Width 15.6 % (11.5-17.5)
[2019-03-27 11:52] LABS: Amphetamine/Metha Screen,Urine Negative ng/mL (<1000); Barbiturates Screen,Urine Negative ng/mL (<200); Benzodiazepines Screen,Urine Positive ng/mL (<200); Cannabinoid Screen,Urine Negative ng/mL (<50); Cocaine Screen,Urine Negative ng/mL (<300); Methadone Screen,Urine Negative ng/mL (<300); Opiate Screen,Urine Negative ng/mL (<300); Phencyclidine Screen,Urine Negative ng/mL (<25)
[2019-03-27 12:13] LABS: Albumin Level 3.5 gm/dL (3.4-5.0); Albumin/Globulin Ratio 0.9 (1.1-1.8); Anion Gap 14.6 mEq/L (5-15); Bilirubin,Total 0.6 mg/dL (0.2-1.0); Calcium 8.9 mg/dL (8.5-10.1); Globulin 3.7 gm/dl (1.3-3.2); Thyroid Stimulating Hormone 1.4 uIU/ml (0.358-3.740); Total Protein,Serum 7.2 gm/dL (6.4-8.2)
[2019-03-27 12:37] LABS: Bacteria,Urine 1+ /lpf; RBC,Urine Occasional #/hpf (0-3); Squamous Epithelial Cell,Urine Occasional #/hpf (0-5)
[2019-03-27 12:44] LABS: Lymphocytes % 8 % (10-50); Monocytes % 3 % (2-9); Neutrophils % 89 % (42-76); RBC Morphology Normal; Total Cells Counted 100
[2019-03-27 17:19] LABS: Activated Partial Thrombo Time 27.9 seconds (23.6-34.0); INR 1.02 (0.9-1.1); Prothrombin Time 10.4 seconds (9.4-11.8)
[2019-03-27 23:50] LABS: INR 1.09 (0.9-1.1); Prothrombin Time 11.3 seconds (9.4-11.8)
[2019-03-27 23:51] LABS: Activated Partial Thrombo Time 127.7 seconds (23.6-34.0)
[2019-03-28 06:18] LABS: INR 1.09 (0.9-1.1); Prothrombin Time 11.3 seconds (9.4-11.8)
[2019-03-28 06:39] LABS: Activated Partial Thrombo Time 49.9 seconds (23.6-34.0)
--- NOTE | 2019-03-28 09:48 | History & Physical Report ---
*Admission Date: 03/27/19 *Chief complaint: AMS, weakness *History of present illness: Ms. leone is an 88-year-old female with history significant for chronic back pain status post intrathecal pump placement, pretension, hyperlipidemia, hypothyroidism. She presented to the ER with altered mental status yesterday. Her family who is at bedside this morning states that they spoke to her Friday night and she was her normal self, alert and oriented. When they tried to contact her Friday morning, she was confused and not acting like herself. When they went to check on her she was slumped over on her Rollator sitting in seat. She states she had been sick throughout the night and had some episodes of vomiting and feeling poorly. Denied diarrhea, chest pain, shortness of breath, fevers. Had generalized weakness but no focal neurologic deficits upon presentation. Work-up on presentation noted to have negative head CT, mild elevation in troponins, EKG with left anterior fascicular block and right bundle branch block (of note these were present back in August as well). Reports seeing us in clinic on Friday where she was diagnosed with UTI and started on Macrobid. She had taken 2 doses starting Friday night of the medication. Patient was admitted out of concern for elevated troponin, altered mental status, and weakness. Suspected UTI versus OK as cause. On my assessment this morning, patient symptoms seem more consistent with urinary tract infection and NSTEMI due to the stress of her illness and vomiting. Family at bedside states she is back to her normal self. [facility] History I have reviewed the patient's past medical history: Yes Medical History: Reports:: Gastroesophageal Reflux Disease(GERD), Hyperlipidemia, Hypertension, Transient Ischemic Attacks (TIA) Denies:: Cancer, Diabetes Mellitus Type 1, Diabetes Mellitus Type 2, Internal Pacemaker, MRSA, Seizures *Have you ever received a pneumonia vaccine?: Yes *Have you received a flu vaccine this season?: Yes Other Medical History: Reports: Anemia, Arthritis, Hoarseness, Other (Obesity). Denies: Blood Transfusion Reaction Laterality Cases: Left: Arthroscopy Shoulder, Bilateral: Tonsillectomy Other Surgeries: Yes: Cholecystectomy, Hysterectomy-Total, Skin Cancer Excision. No: Pacemaker Amputation: No Fractures: No - *Social History Educational Level: Attended High School Smoking Status: Never smoker Alcohol Intake: never *Occupational Status:: retired, other Housing: house Household Members: none *Travel in the last 8 weeks: None Family Hx:: Asthma, Cancer, Hypertension Review of Systems - Review of Systems Review of systems:: pertinent systems reviewed and negative unless documented below - *Neurologic Reports confusion, Reports weakness Meds Home Medications Medication Instructions Recorded Confirmed Type Aspirin [Adult Low Dose Aspirin EC] 81 mg PO HS 04/25/17 03/27/19 History Clopidogrel Bisulfate [Plavix 75mg 75 mg PO DAILY 04/25/17 03/27/19 History Tab] Pravastatin Sodium [Pravachol] 40 mg PO HS 04/25/17 03/27/19 History ALPRAZolam [Xanax 0.5mg tab] 0.5 mg PO HSP PRN 04/26/17 03/27/19 History Lansoprazole [Prevacid] 60 mg PO DAILY 04/26/17 03/27/19 History Sucralfate [Sucralfate 1gm 1 gm PO ACHS 04/26/17 03/27/19 History Tab] bisoproloL fumarate [Bisoprolol 10 mg PO DAILY 04/26/17 03/27/19 History 10mg Tablet] Losartan Potassium 100 mg PO DAILY 04/24/18 03/27/19 History Oxybutynin Chloride [Ditropan 5mg 5 mg PO BID 04/24/18 03/27/19 History tablet] Meloxicam [Mobic 7.5mg Tab] 7.5 mg PO DAILY 08/21/18 03/27/19 History Cyanocobalamin (Vitamin B-12) 500 mcg PO DAILY 09/11/18 03/27/19 History [Vitamin B-12] Ergocalciferol (Vitamin D2) 50,000 unit PO .TWICE A WEEK 09/11/18 03/27/19 History [Vitamin D2] Multivitamin [Multivitamins] 1 each PO DAILY 09/11/18 03/27/19 History [place]-3/Dha/Epa/Fish Oil [Fish Oil 1,000 mg PO HS 09/11/18 03/27/19 History 1,000 mg Softgel] raNITIdine HCl [Ranitidine HCl] 150 mg PO BID 09/11/18 03/27/19 History Nitrofurantoin Monohyd/M-Cryst 100 mg PO BID 03/27/19 03/27/19 History [Nitrofurantoin [place]-Mcr 100 mg] Amlodipine Besylate [Amlodipine 5 mg PO DAILY 03/28/19 03/28/19 History 5mg tab] [place]-3 Fatty Acids/Fish Oil 2,000 mg PO DAILY 03/28/19 03/28/19 History [[place] 3 1,000 mg Softgel] Allergies Allergy/AdvReac Type Severity Reaction Status Date / Time amoxicillin [From Augmentin] Allergy Intermediate Blister Verified 03/02/19 13:31 clavulanic acid Allergy Intermediate Blister Verified 03/02/19 13:31 [From Augmentin] clarithromycin Allergy Unknown Verified 03/02/19 13:31 [CLARITHROMYCIN] codeine [CODEINE] Allergy Unknown Verified 03/02/19 13:31 diazepam [DIAZEPAM] Allergy Unknown Verified 03/02/19 13:31 Exam Vital signs and Labs for Last 24 Hours: Temp Pulse Resp BP Pulse Ox 98.2 F 60 20 164/73 H 98 03/28/19 08:00 03/28/19 08:00 03/28/19 08:00 03/28/19 08:00 03/28/19 08:00 Laboratory Results - last 24 hr 03/27/19 11:15: WBC 15.0 H, RBC 5.01, Hgb 13.8, Hct 44.0, MCV 87.9, MCH 27.6, MCHC 31.4 L, RDW 15.6, Plt Count 224, MPV 8.0, Neut % (Auto) 88.8 H, Lymph % (Auto) 7.2 L, [place] % (Auto) 3.6, Eos % (Auto) 0.2, Baso % (Auto) 0.2, Neut # (Auto) 13.4 H, Lymph # (Auto) 1.1, [place] # (Auto) 0.6, Eos # (Auto) 0.0, Baso # (Auto) 0.0, Total Counted 100, Neutrophils % (Manual) 89 H, Lymphocytes % (Manual) 8 L, Monocytes % (Manual) 3, Platelet Estimate Normal, RBC Morphology Normal 03/27/19 11:15: Troponin I 0.31 H 03/27/19 11:15: Urine Opiates Screen Negative, Urine Methadone Screen Negative, Ur Barbituates Screen Negative, Ur Phencyclidine Scrn Negative, Ur Amphetamines Screen Negative, U Benzodiazepines Scrn Positive H, Urine Cocaine Screen Negative, U Marijuana (THC) Screen Negative 03/27/19 11:15: Sodium 141, Potassium 3.6, Chloride 101, Carbon Dioxide 29, Anion Gap 14.6, BUN 24 H, Creatinine 1.29 H, Estimated Creat Clear 40, Estimated GFR 39 L, Est GFR ( Amer) 47 L, Glucose 142 H, Calcium 8.9, Total Bilirubin 0.6, AST 21, ALT 18, Alkaline Phosphatase 61, Total Protein 7.2, Albumin 3.5, Globulin 3.7 H, Albumin/Globulin Ratio 0.9 L, TSH 1.40 03/27/19 11:25: Specimen Source Right radial, O2 % Room air, ABG pH 7.45, ABG pCO2 35.6, ABG pO2 80.1, ABG HCO3 24.2, ABG Total CO2 25.3, ABG O2 Saturation 96, ABG Base Excess 0.3, Santy Test Patient unable 03/27/19 11:36: Urine Color Yellow, Urine Appearance Clear, Urine pH 8.0, Ur Specific [place] 1.010, Urine Protein Trace, Urine Glucose (UA) Negative, Urine Ketones Negative, Urine Blood Negative, Urine Nitrate Negative, Urine Bilirubin Negative, Urine Urobilinogen 0.2, Ur Leukocyte Esterase Trace, Urine RBC Occasional, Urine WBC 3-5, Ur Squamous Epith Cells Occasional, Urine Bacteria 1+ 03/27/19 12:15: Lactate 1.3 03/27/19 13:54: Troponin I 0.41 H 03/27/19 16:00: PT 10.4, INR 1.02, APTT 27.9 03/27/19 23:30: PT 11.3, INR 1.09, APTT 127.7 H* D 03/28/19 06:00: PT 11.3, INR 1.09, APTT 49.9 H D I & O for Last 24 hours: Intake & Output 03/25/19 03/26/19 03/27/19 03/28/19 23:59 23:59 23:59 23:59 Intake Total 794 / 1104 1448 / 1448 Output Total 1050 / 1050 Balance 794 / 254 398 / 398 Weight 77.791 kg 83.518 kg - Constitutional no acute distress, obese Comments: elderly - *Routine HEENT Exam Head: Present: normocephalic Eye: Present: EOMI, PERRL ENT: Present: mucous membranes moist - *Routine Neck Exam Present: supple. Absent: lymphadenopathy - *Routine Respiratory Exam Present: CTA bilaterally. Absent: wheezes, crackles - *Routine Cardiovascular Exam Present: RRR - *Routine Abdominal Exam Present: soft, normoactive bowel sounds. Absent: tenderness - *Routine Extremities Exam Present: edema (trace). Absent: cyanosis, clubbing - Routine Back/Spine/Pelvis Exam Back/Spine: Absent: CVA tenderness - *Routine Skin Exam Present: warm. Absent: rash - *Routine Neurological Exam Present: alert, oriented X3 Assessment and Plan (1) NSTEMI (non-ST elevated myocardial infarction) Current visit: Yes Status: Acute Category: Medical Code(s): I21.4 - Non-ST elevation (NSTEMI) myocardial infarction The stress of her illness and vomiting caused slight bump in troponin. Repeat this morning shows troponin coming down. No ST elevations. Will consider consulting cardiology on Friday given patient's conduction blocks over the past few months and difficult to control hypertension. Will monitor on telemetry overnight (2) Chronic back pain Current visit: Yes Status: Chronic Category: Medical Code(s): M54.9 - Dorsalgia, unspecified; G89.29 - Other chronic pain Intra-thecal pump in place. Stable at this time (3) UTI (urinary tract infection) Current visit: Yes Status: Acute Category: Medical Code(s): N39.0 - Urinary tract infection, site not specified Suspect her urinary tract infection was more clinically significant than init ially suspected. Given patient's pain pump, may not have typical symptoms such as flank pain or dysuria. Urine culture pending. De-escalate antibiotics per orders. CHASTITY Struod today (4) Altered mental status Current visit: Yes Status: Acute Category: Medical Code(s): R41.82 - Al tered mental status, unspecified Resolved this morning. Suspect secondary to infection, illness, or her chronic benzodiazepine use. Monitor another 24 hours. Will resume home Xanax as she takes this every night and monitor for adverse effect. (5) Elevated troponin I level Current visit: Yes Status: Acute Category: Medical Code(s): R79.89 - Other specified abnormal findings of blood chemistry Suspect due to supply demand mismatch from the stress of illness. No ST el evations. Repeat today trending down. Stopped heparin drip. Will resume home antihypertensive regimen. Monitor for any clinical change. Repeat if clinically has new symptoms (6) Hypertension Current visit: Yes Status: Acute Qualifiers: Hypertension type: essential hypertension Qualified Code(s): I10 - Essential (primary) hypertension Category: Medical Code(s): I10 - Essential (primary) hypertension Resume home regimen - Assessment and plan all Dx Assessment and Plan for all problems:: 88-year-old female with multiple comorbidities who presented with altered mental status. Appears to have resolved and returned to baseline. De-escalate antibiotics for UTI and resume home regimen for hypertension. Monitor on telemetry due to concern for left anterior fascicular block right bundle branch block in the setting of elevated troponins. Possible cardiology consult in the morning. If patient remains clinically stable with no further episode, discharged home tomorrow
[2019-03-28 10:32] LABS: Albumin Level 2.9 gm/dL (3.4-5.0); Albumin/Globulin Ratio 0.8 (1.1-1.8); Anion Gap 10.5 mEq/L (5-15); Bilirubin,Total 0.4 mg/dL (0.2-1.0); Calcium 8.7 mg/dL (8.5-10.1); Globulin 3.6 gm/dl (1.3-3.2); Total Protein,Serum 6.5 gm/dL (6.4-8.2)
--- NOTE | 2019-03-28 10:32 | Pharmacy Consult Notes ---
[facility] Pharmacy VTE Monitoring - Patient Demographics Admission date: 03/27/19 Report Date: 03/28/19 Time: 10:30 Allergies/Adverse Reactions: Patient Allergies amoxicillin [From Augmentin] Allergy (Intermediate, Verified 03/02/19 13:31) Blister clavulanic acid [From Augmentin] Allergy (Intermediate, Verified 03/02/19 13:31) Blister clarithromycin [CLARITHROMYCIN] Allergy (Unknown, Verified 03/02/19 13:31) codeine [CODEINE] Allergy (Unknown, Verified 03/02/19 13:31) diazepam [DIAZEPAM] Allergy (Unknown, Verified 03/02/19 13:31) Height: 1.65 m Weight: 83.518 kg Patient Problems: Current Active Problems UTI (urinary tract infection) (Acute) Altered mental status (Acute) Elevated troponin I level (Acute) Hypertension (Acute) Hyperlipidemia (Acute) Anemia (Acute) GERD (gastroesophageal reflux disease) (Acute) Osteoarthritis (Acute) History of TIA (transient ischemic attack) (Acute) - VTE Risk Labs: VTE Related Lab Results Hgb 13.8 g/dL (12.2-16.2) 03/27/19 11:15 Hct 44.0 % (37.0-47.0) 03/27/19 11:15 Plt Count 224 K/mm3 (142-424) 03/27/19 11:15 PT 11.3 seconds (9.4-11.8) 03/28/19 06:00 INR 1.09 (0.9-1.1) 03/28/19 06:00 APTT 49.9 seconds (23.6-34.0) H D 03/28/19 06:00 BUN 24 mg/dL (7-18) H 03/27/19 11:15 Creatinine 1.29 mg/dL (0.55-1.02) H 03/27/19 11:15 Estimated Creat Clear 40 mL/min (50-200) 03/27/19 11:15 - Prophylaxis VTE Prophylaxis Ordered?: Yes (ON HEPARRIN DRIP FROM ADMISSION UNTIL 03/28/19 @ 0951) Types of VTE Prophylaxis: TEDS Knee High Location of Applied Device: Bilateral Lower Extremeties
[2019-03-28 10:36] LABS: Basophils % 0.3 % (0.1-2.0); Eosinophils # 0.3 K/mm3 (0.0-0.4); Eosinophils % 4.1 % (0.1-12.0); Hematocrit 41.2 % (37.0-47.0); Hemoglobin 12.9 g/dL (12.2-16.2); Lymphocytes # 0.6 K/mm3 (0.7-4.5); Lymphocytes % 9.4 % (10-50); Mean Corpuscular HGB Conc 31.2 g/dL (31.8-35.4); Mean Corpuscular Volume 88.4 fl (81-99); Mean Platelet Volume 8.5 fl (7.4-10.4); Monocytes # 0.3 K/mm3 (0.1-1.0); Monocytes % 4.1 % (1.7-9.3); Neutrophils # 5.3 K/mm3 (1.8-7.8); Neutrophils % 82.1 % (37.0-80.0); Platelet Count 184 K/mm3 (142-424); Red Blood Count 4.67 M/mm3 (4.20-5.40); Red Cell Distribution Width 15.7 % (11.5-17.5); White Blood Count 6.4 K/mm3 (4.8-10.8)
--- NOTE | 2019-03-28 11:42 | Pharmacy Consult Notes ---
[facility] Heparin Dosing - Demographic Data Admission date:: 03/27/19 Date: 03/28/19 Time: 11:39 Allergies/Adverse Reactions: Allergies Allergy/AdvReac Type Severity Reaction Status Date / Time amoxicillin [From Augmentin] Allergy Intermediate Blister Verified 03/02/19 13:31 clavulanic acid Allergy Intermediate Blister Verified 03/02/19 13:31 [From Augmentin] clarithromycin Allergy Unknown Verified 03/02/19 13:31 [CLARITHROMYCIN] codeine [CODEINE] Allergy Unknown Verified 03/02/19 13:31 diazepam [DIAZEPAM] Allergy Unknown Verified 03/02/19 13:31 Height: 1.65 m Weight: 83 kg - Indication Medication therapy:: Heparin Current Indications:: CARDIAC Patient Problems: Current Active Problems UTI (urinary tract infection) (Acute) Altered mental status (Acute) Elevated troponin I level (Acute) Hypertension (Acute) Hyperlipidemia (Acute) Anemia (Acute) GERD (gastroesophageal reflux disease) (Acute) Osteoarthritis (Acute) History of TIA (transient ischemic attack) (Acute) CVA?: No Bleeding problem?: No Kidney disease?: No CA?: No Desired PTT range:: 60-80 seconds - Labs Anticoagulation Lab Results:: 03/27/19 03/28/19 11:15 10:10 Hgb 13.8 12.9 Hct 44.0 41.2 Plt Count 224 184 - Monitoring Dose Monitor 1 Date: 03/27/19 Time: 16:00 PTT Result:: 27.9 Infusion Rate:: 20 ML/HR Comment:: BASELINE PTT HEPARIN 5000 UNIT BOLUS GIVEN LZE=101 Dose Monitor 2 Date: 03/27/19 Time: 23:30 PTT Result:: 127.7 Infusion Rate:: 17 ML/HR Dose Monitor 3 Date: 03/28/19 Time: 06:00 PTT Result:: 49.9 Infusion Rate:: 18 ML/HR Comment:: DROP STOPPED BY DR PEGUERO - Core Measures Is INR > or = 2 at discharge?: No Most Recent Labs:: Laboratory Results - last 24 hr 03/27/19 11:15: WBC 15.0 H, RBC 5.01, Hgb 13.8, Hct 44.0, MCV 87.9, MCH 27.6, MCHC 31.4 L, RDW 15.6, Plt Count 224, MPV 8.0, Neut % (Auto) 88.8 H, Lymph % (Auto) 7.2 L, [place] % (Auto) 3.6, Eos % (Auto) 0.2, Baso % (Auto) 0.2, Neut # (Auto) 13.4 H, Lymph # (Auto) 1.1, [place] # (Auto) 0.6, Eos # (Auto) 0.0, Baso # (Auto) 0.0, Total Counted 100, Neutrophils % (Manual) 89 H, Lymphocytes % (Manual) 8 L, Monocytes % (Manual) 3, Platelet Estimate Normal, RBC Morphology Normal 03/27/19 11:15: Troponin I 0.31 H 03/27/19 11:15: Urine Opiates Screen Negative, Urine Methadone Screen Negative, Ur Barbituates Screen Negative, Ur Phencyclidine Scrn Negative, Ur Amphetamines Screen Negative, U Benzodiazepines Scrn Positive H, Urine Cocaine Screen Negative, U Marijuana (THC) Screen Negative 03/27/19 11:15: Sodium 141, Potassium 3.6, Chloride 101, Carbon Dioxide 29, Anion Gap 14.6, BUN 24 H, Creatinine 1.29 H, Estimated Creat Clear 40, Estimated GFR 39 L, Est GFR ( Amer) 47 L, Glucose 142 H, Calcium 8.9, Total Bilirubin 0.6, AST 21, ALT 18, Alkaline Phosphatase 61, Total Protein 7.2, Albumin 3.5, Globulin 3.7 H, Albumin/Globulin Ratio 0.9 L, TSH 1.40 03/27/19 11:36: Urine Color Yellow, Urine Appearance Clear, Urine pH 8.0, Ur Specific [place] 1.010, Urine Protein Trace, Urine Glucose (UA) Negative, Urine Ketones Negative, Urine Blood Negative, Urine Nitrate Negative, Urine Bilirubin Negative, Urine Urobilinogen 0.2, Ur Leukocyte Esterase Trace, Urine RBC Occasional, Urine WBC 3-5, Ur Squamous Epith Cells Occasional, Urine Bacteria 1+ 03/27/19 12:15: Lactate 1.3 03/27/19 13:54: Troponin I 0.41 H 03/27/19 16:00: PT 10.4, INR 1.02, APTT 27.9 03/27/19 23:30: PT 11.3, INR 1.09, APTT 127.7 H* D 03/28/19 06:00: PT 11.3, INR 1.09, APTT 49.9 H D 03/28/19 10:10: WBC 6.4 D, RBC 4.67, Hgb 12.9, Hct 41.2, MCV 88.4, MCH 27.6, MCHC 31.2 L, RDW 15.7, Plt Count 184, MPV 8.5, Neut % (Auto) 82.1 H, Lymph % (Auto) 9.4 L, [place] % (Auto) 4.1, Eos % (Auto) 4.1, Baso % (Auto) 0.3, Neut # (Auto) 5.3, Lymph # (Auto) 0.6 L, [place] # (Auto) 0.3, Eos # (Auto) 0.3, Baso # (Auto) 0.0 03/28/19 10:10: Sodium 143, Potassium 3.5, Chloride 105, Carbon Dioxide 31, Anion Gap 10.5, BUN 15 D, Creatinine 1.20 H, Estimated Creat Clear 44, Estimated GFR 42 L, Est GFR ( Amer) 51 L, Glucose 103 D, Calcium 8.7, Magnesium 1.7, Total Bilirubin 0.4, AST 16, ALT 15, Alkaline Phosphatase 52, Total Protein 6.5, Albumin 2.9 L D, Globulin 3.6 H, Albumin/Globulin Ratio 0.8 L 03/28/19 10:10: Troponin I 0.33 H If INR was < than 2.0 why was therapy stopped?: THERAPY NOT INDICATED, NO PE OR DVT Were Heparin and Warfarin started on the same day?: No Comments:: WARFARIN NOT INDICATED...NO PE OR DVT
--- NOTE | 2019-03-29 08:40 | Progress Note ---
Internal Medicine - PN: Subj *Date: 03/29/19 *Time: 08:37 Interval history: Patient is up in a chair for the first time all weekend. She is oriented, but has somewhat different stories about her sleep last night. There was some question about whether or not she had taken Restoril for sleep, and she reports that "I did not sleep well with the Restoril." When it turned out she actually had her home dose of Xanax she then reports "I slept really well last night." Her children are both in the room and reports that she is "not herself" and they are very concerned about dyspnea with even minimal exertion. Exam Vital signs and Labs for Last 24 Hours: Temp Pulse Resp BP Pulse Ox 97.8 F 60 18 154/76 H 96 03/29/19 04:00 03/29/19 04:00 03/29/19 04:00 03/29/19 04:00 03/29/19 04:00 Laboratory Results - last 24 hr 03/28/19 10:10: WBC 6.4 D, RBC 4.67, Hgb 12.9, Hct 41.2, MCV 88.4, MCH 27.6, MCHC 31.2 L, RDW 15.7, Plt Count 184, MPV 8.5, Neut % (Auto) 82.1 H, Lymph % (Auto) 9.4 L, [place] % (Auto) 4.1, Eos % (Auto) 4.1, Baso % (Auto) 0.3, Neut # (Auto) 5.3, Lymph # (Auto) 0.6 L, [place] # (Auto) 0.3, Eos # (Auto) 0.3, Baso # (Auto) 0.0 03/28/19 10:10: Sodium 143, Potassium 3.5, Chloride 105, Carbon Dioxide 31, Anion Gap 10.5, BUN 15 D, Creatinine 1.20 H, Estimated Creat Clear 44, Estimated GFR 42 L, Est GFR ( Amer) 51 L, Glucose 103 D, Calcium 8.7, Magnesium 1.7, Total Bilirubin 0.4, AST 16, ALT 15, Alkaline Phosphatase 52, Total Protein 6.5, Albumin 2.9 L D, Globulin 3.6 H, Albumin/Globulin Ratio 0.8 L 03/28/19 10:10: Troponin I 0.33 H I & O for Last 24 hours: Intake & Output 03/26/19 03/27/19 03/28/19 03/29/19 11:59 11:59 11:59 11:59 Intake Total 2482 / 2482 3191 / 3191 Output Total 1050 / 1050 2400 / 2400 Balance 1432 / 1432 791 / 791 Weight 180 lb 182 lb 15.739 oz 182 lb 15.739 oz Narrative: Patient is up in a chair. Heart rate regular. No murmurs. Abdomen obese but soft. Lung bases are crackly, but fairly good air entry in the upper lung palmer. No significant edema. Globally weak. No symmetric cranial nerve deficits and no peripheral deficits. Assessment and Plan (1) NSTEMI (non-ST elevated myocardial infarction) Current visit: Yes Status: Acute Category: Medical Code(s): I21.4 - Non-ST elevation (NSTEMI) myocardial infarction (2) Chronic back pain Current visit: Yes Status: Chronic Category: Medical Code(s): M54.9 - Dorsalgia, unspecified; G89.29 - Other chronic pain (3) UTI (urinary tract infection) Current visit: Yes Status: Acute Category: Medical Code(s): N39.0 - Urinary tract infection, site not specified (4) Altered mental status Current visit: Yes Status: Acute Category: Medical Code(s): R41.82 - Altered mental status, unspecified (5) Elevated troponin I level Current visit: Yes Status: Acute Category: Medical Code(s): R79.89 - Other specified abnormal findings of blood chemistry (6) Hypertension Current visit: Yes Status: Acute Qualifiers: Hypertension type: essential hypertension Qualified Code(s): I10 - Essential (primary) hypertension Category: Medical Code(s): I10 - Essential (primary) hypertension - Assessment and plan all Dx Assessment and Plan for all problems:: Overall feels somewhat better. I am still concerned about the possibility of CVA. Repeat CT scan today. MRI unavailable for patient because of pain pump implantation. Check echocardiogram given dyspnea and elevated troponins. Cardiology consult. PT/OT evaluation. Patient has been worsening in regards to frailty over the past year or so, continues to live by herself but this may be an untenable situation going forward.
--- NOTE | 2019-03-29 09:22 | Consult Report ---
History of Present Illness Consult date: 03/29/19 Requesting physician: Michel Pineda Consult reason: chest pain Chief complaint: chest pain, elevated troponins, UTI, AMS Additional Medical History:: 1. Hypertension, treated for over 10 years 2. Hyperlipidemia specifically hypertriglyceridemia 3. History of gastric ulcers/GERD, on chronic PPI therapy 4. History of symptomatic spinal stenosis requiring intrathecal pain pump implantation 5. Chronic kidney disease, stage II/III A. Cr 1.2, GFR 42 on 03/29/2019 History of present illness: Ms. Palmer is an 88-year-old female with history significant for chronic back pain status post intrathecal pump placement, pretension, hyperlipidemia, hypothyroidism. She presented to the ER with altered mental status yesterday. Her family who is at bedside this morning states that they spoke to her Friday night and she was her normal self, alert and oriented. When they tried to contact her Friday morning, she was confused and not acting like herself. When they went to check on her she was slumped over on her Rollator sitting in seat. She states she had been sick throughout the night and had some episodes of vomiting and feeling poorly. Denied diarrhea, chest pain, shortness of breath, fevers. Had generalized weakness but no focal neurologic deficits upon presentation. Work-up on presentation noted to have negative head CT, mild elevation in troponins, EKG with left anterior fascicular block and right bundle branch block (of note these were present back in August as well). Reports seeing us in clinic on Friday where she was diagnosed with UTI and star sunny on Macrobid. She had taken 2 doses starting Friday night of the medication. Patient was admitted out of concern for elevated troponin, altered mental status, and weakness. Suspected UTI versus VA as cause. On my assessment this morning, patient symptoms seem more consistent with urinary tract infection and NSTEMI due to the stress of her illness and vomiting. Family at bedside states she is back to her normal self The above per Dr. Stout Cardiology consulted for elevated troponin and complaint of increasing exertional shortness of breath and weakness over the last 6 to 12 months. No prior cardiac work-up noted. At this time patient does relate some chest/upper abdominal soreness that is reproducible with palpation. Family states that the patient has been very independent even to the point of using a walker to help mop her floor but states that she has progressively become more limited by her shortness of breath. They relate wide swings in her blood pressure of almost 100 mmHg. EKG noted to be abnormal with bifascicular block (LAFB and RBBB) which is unchanged since at least August of this year. She denies any syncope or near syncopal type symptoms. [facility] History Medical History: Reports:: Gastroesophageal Reflux Disease(GERD), Hyperlipidemia, Hypertension, Transient Ischemic Attacks (TIA) Denies:: Cancer, Diabetes Mellitus Type 1, Diabetes Mellitus Type 2, Internal Pacemaker, MRSA, Seizures *Have you ever received a pneumonia vaccine?: Yes *Have you received a flu vaccine this season?: Yes Other Medical History: Reports: Anemia, Arthritis, Hoarseness, Other (Obesity). Denies: Blood Transfusion Reaction Laterality Cases: Left: Arthroscopy Shoulder, Bilateral: Tonsillectomy Other Surgeries: Yes: Cholecystectomy, Hysterectomy-Total, Skin Cancer Excision. No: Pacemaker Amputation: No Fractures: No - *Social History Educational Level: Attended High School Smoking Status: Never smoker Alcohol Intake: never *Occupational Status:: retired, other Housing: house Household Members: none *Travel in the last 8 weeks: None Family Hx:: Asthma, Cancer, Hypertension Meds Home Medications Medication Instructions Recorded Confirmed Type Aspirin [Adult Low Dose Aspirin EC] 81 mg PO HS 04/25/17 03/27/19 History Clopidogrel Bisulfate [Plavix 75mg 75 mg PO DAILY 04/25/17 03/27/19 History Tab] Pravastatin Sodium [Pravachol] 40 mg PO HS 04/25/17 03/27/19 History ALPRAZolam [Xanax 0.5mg tab] 0.5 mg PO HSP PRN 04/26/17 03/27/19 History Lansoprazole [Prevacid] 60 mg PO DAILY 04/26/17 03/27/19 History Sucralfate [Sucralfate 1gm 1 gm PO ACHS 04/26/17 03/27/19 History Tab] bisoproloL fumarate [Bisoprolol 10 mg PO DAILY 04/26/17 03/27/19 History 10mg Tablet] Losartan Potassium 100 mg PO DAILY 04/24/18 03/27/19 History Oxybutynin Chloride [Ditropan 5mg 5 mg PO BID 04/24/18 03/27/19 History tablet] Meloxicam [Mobic 7.5mg Tab] 7.5 mg PO DAILY 08/21/18 03/27/19 History Cyanocobalamin (Vitamin B-12) 500 mcg PO DAILY 09/11/18 03/27/19 History [Vitamin B-12] Ergocalciferol (Vitamin D2) 50,000 unit PO .TWICE A WEEK 09/11/18 03/27/19 History [Vitamin D2] Multivitamin [Multivitamins] 1 each PO DAILY 09/11/18 03/27/19 History [place]-3/Dha/Epa/Fish Oil [Fish Oil 1,000 mg PO HS 09/11/18 03/27/19 History 1,000 mg Softgel] raNITIdine HCl [Ranitidine HCl] 150 mg PO BID 09/11/18 03/27/19 History Nitrofurantoin Monohyd/M-Cryst 100 mg PO BID 03/27/19 03/27/19 History [Nitrofurantoin [place]-Mcr 100 mg] Amlodipine Besylate [Amlodipine 5 mg PO DAILY 03/28/19 03/28/19 History 5mg tab] Woodson-3 Fatty Acids/Fish Oil 2,000 mg PO DAILY 03/28/19 03/28/19 History [[place] 3 1,000 mg Softgel] Allergies Allergy/AdvReac Type Severity Reaction Status Date / Time amoxicillin [From Augmentin] Allergy Intermediate Blister Verified 03/02/19 13:31 clavulanic acid Allergy Intermediate Blister Verified 03/02/19 13:31 [From Augmentin] clarithromycin Allergy Unknown Verified 03/02/19 13:31 [CLARITHROMYCIN] codeine [CODEINE] Allergy Unknown Verified 03/02/19 13:31 diazepam [DIAZEPAM] Allergy Unknown Verified 03/02/19 13:31 Review of Systems - Review of Systems Review of systems:: pertinent systems reviewed and negative unless documented below - ENT Denies dizziness - *Cardiovascular Reports chest pain, Reports shortness of breath with activity - *Respiratory Reports shortness of breath with activity, Denies cough, Denies wheezing - *Gastrointestinal Reports abdominal pain, Denies nausea, Denies vomiting - *Genitourinary Denies blood in urine - *Musculoskeletal Reports joint pain, Reports back pain - *Neurologic Reports confusion, Reports weakness, Denies dizziness Exam Vital signs and Labs for Last 24 Hours: Temp Pulse Resp BP Pulse Ox 97.9 F 73 20 198/90 H 95 03/29/19 08:00 03/29/19 08:00 03/29/19 08:00 03/29/19 08:00 03/29/19 08:00 Laboratory Results - last 24 hr 03/28/19 10:10: WBC 6.4 D, RBC 4.67, Hgb 12.9, Hct 41.2, MCV 88.4, MCH 27.6, MCHC 31.2 L, RDW 15.7, Plt Count 184, MPV 8.5, Neut % (Auto) 82.1 H, Lymph % (Auto) 9.4 L, [place] % (Auto) 4.1, Eos % (Auto) 4.1, Baso % (Auto) 0.3, Neut # (Auto) 5.3, Lymph # (Auto) 0.6 L, [place] # (Auto) 0.3, Eos # (Auto) 0.3, Baso # (Auto) 0.0 03/28/19 10:10: Sodium 143, Potassium 3.5, Chloride 105, Carbon Dioxide 31, Anion Gap 10.5, BUN 15 D, Creatinine 1.20 H, Estimated Creat Clear 44, Estimated GFR 42 L, Est GFR ( Amer) 51 L, Glucose 103 D, Calcium 8.7, Magnesium 1.7, Total Bilirubin 0.4, AST 16, ALT 15, Alkaline Phosphatase 52, Total Protein 6.5, Albumin 2.9 L D, Globulin 3.6 H, Albumin/Globulin Ratio 0.8 L 03/28/19 10:10: Troponin I 0.33 H I & O for Last 24 hours: Intake & Output 03/26/19 03/27/19 03/28/19 03/29/19 11:59 11:59 11:59 11:59 Intake Total 2482 / 2482 3191 / 3191 Output Total 1050 / 1050 2650 / 2650 Balance 1432 / 1432 541 / 541 Weight 180 lb 182 lb 15.739 oz 182 lb 15.739 oz - *Routine HEENT Exam Head: Present: normocephalic Eye: Present: EOMI, PERRL ENT: Present: mucous membranes moist - *Routine Neck Exam Present: supple. Absent: JVD, carotid bruit - *Routine Respiratory Exam Present: CTA bilaterally. Absent: accessory muscle use, rales, rhonchi, wheezes - *Routine Cardiovascular Exam Present: RRR. Absent: murmur, gallop, rubs - *Routine Abdominal Exam Present: soft, tenderness. Absent: distended, guarding - *Routine Extremities Exam Present: edema. Absent: calf tenderness - *Routine Neurological Exam Present: alert, oriented X3, moving all extremities Assessment and Plan (1) NSTEMI (non-ST elevated myocardial infarction) Current visit: Yes Status: Acute Category: Medical Code(s): I21.4 - Non-ST elevation (NSTEMI) myocardial infarction (2) Chronic back pain Current visit: Yes Status: Chronic Category: Medical Code(s): M54.9 - Dorsalgia, unspecified; G89.29 - Other chronic pain (3) UTI (urinary tract infection) Current visit: Yes Status: Acute Category: Medical Code(s): N39.0 - Ur inary tract infection, site not specified (4) Altered mental status Current visit: Yes Status: Acute Category: Medical Code(s): R41.82 - Altered mental status, unspecified (5) Elevated troponin I level Current visit: Yes Status: Acute Category: Medical Code(s): R79.89 - Other specified abnormal findings of blood chemistry (6) Hypertension Current visit: Yes Status: Acute Qualifiers: Hypertension type: essential hypertension Qualified Code(s): I10 - Essential (primary) hypertension Category: Medical Code(s): I10 - Essential (primary) hypertension - Assessment and plan all Dx Assessment and Plan for all problems:: 1. Elevated troponin/non-ST elevation [place], type II, likely secondary to UTI. Continue aspirin and Plavix, beta-edna and LEWIS inhibitor. Will obtain echocardiogram to evaluate left ventricular size and function. Pending those results we will discuss further work-up, possibly stress testing versus cardiac catheterization. 2. Abnormal EKG with bifascicular block, no syncope or near syncopal symptoms. Continue to monitor her on telemetry and then home with Holter monitor as outpatient. 3. UTI, per Chris Kirk 4. Hypertension with reported labile readings. Will obtain renal artery duplex to evaluate kidneys and renal arteries. Family history of renal cancer noted. 5. Chronic kidney disease, stage II/III
--- NOTE | 2019-03-29 16:52 | Cardiology Report ---
APPROVED REPORT Parole Director: DENA Laterality: Bilateral Study Quality: Good Indications: MS changes,KATHERINE,HTN Doppler Spectral Velocity Analysis dICA (R) 88.00/20.50 cm/sdICA (L) 69.30/14.80 cm/s Yodit (R) 61.00/16.00 cm/smICA (L) 70.00/17.30 cm/s pICA (R) 66.80/13.40 cm/spICA (L) 57.10/17.30 cm/s dCCA (R) 50.50/11.10 cm/sdCCA (L) 57.80/10.90 cm/s pCCA (R) 59.00/10.30 cm/spCCA (L) 68.70/11.60 cm/s Vert (R) 56.50/10.30 cm/sVert (L) 54.50/5.90 cm/s ICA/CCA 1.74 ICA/CCA 1.21 Findings Duplex evaluation demonstrates stenosis of the right proximal internal carotid artery <20% with PSV <140 cm/sec, EDV <100 cm/sec, and IC/CC Ratio <4.0.Duplex evaluation demonstrates stenosis of the left proximal internal carotid artery <20% with PSV <140 cm/sec, EDV <100 cm/sec, and IC/CC Ratio <4.0.Antegrade flow seen bilateral vertebral arteries.No significant change from exam of 01/22/16 Conclusion No increased velocities to suggest hemodynamically significant stenosis in either internal carotid artery. Electronically signed by : Santy Valentino MD 03/29/2019 16:52:02
--- NOTE | 2019-03-29 16:55 | Cardiology Report ---
APPROVED REPORT Manager Agricultural: Malina Edwards RVT Study Quality: Good Indications: labile hypertension Risk Factors Hypertension Hyperlipidemia Renal Artery Doppler Origin (R) 165.7/ cm/sec Proximal (R) 163.1/ cm/sec Mid (R) 100.2/ cm/sec Distal (R) 61.6/ cm/sec Renal Aorta Ratio (R)2.10 Segmental A. (R) 30.2/8.3 cm/sec RI: 0.72 Segmental A. Sup (R) 25.7/6.9 cm/sec Segmental A. Mid (R) 23.8/7.1 cm/sec Segmental A. Inf (R) 30.2/8.3 cm/sec Origin (L) 106.6/ cm/sec Proximal (L) 126.7/ cm/sec Mid (L) 94.9/ cm/sec Distal (L) 75.0/ cm/sec Renal Aorta Ratio (L)1.60 Segmental A. (L) 70.9/15.6 cm/sec RI: 0.77 Segmental A. Sup (L) 64.7/12.5 cm/sec Segmental A. Mid (L) 70.9/15.6 cm/sec Segmental A. Inf (L) 34.4/14.6 cm/sec Renal Measurements Kidney Size (R) 10.7x6.6 cm Cortical Thickness (R) 1.5 cm Kidney Size (L) 9.6x7.0 cm Cortical Thickness (L) 1.5 cm Conclusion Study suggests no evidence of bilateral renal artery stenosis. 2.9cm cyst mid right kidney. Electronically signed by : Santy Valentino MD 03/29/2019 16:54:35
--- NOTE | 2019-03-29 19:31 | Cardiology Report ---
APPROVED REPORT EXAM: Comprehensive 2D, Doppler, and color-flow Echocardiogram Garden Worker: Patt Luna CRT Ht: 5 ft 4 in Wt: 182lbs BSA: 1.88 BP: 164/73 mmHg Indications: AMS, SOB, ELEVATED TROP, HTN, HLD, GERD Left Ventricle Left atrium is mildly enlarged, left ventricle is normal size, mild concentric left ventricular hypertrophy, visually estimated ejection fraction 55% with no regional wall motion abnormality. Grade 1 diastolic dysfunction seen with tissue Doppler evidence of raise left atrial pressure. Right Ventricle Right atrium and right ventricular normal size and contractility. Aortic Valve Aortic valve is minimally thickened and fibrosed, there is no aortic stenosis, there is mild aortic insufficiency. Mitral Valve Mitral valve is grossly normal, there is mild mitral regurgitation. Tricuspid Valve Tricuspid valve is grossly normal, there is mild tricuspid regurgitation, tricuspid regurgitation jet velocity is inadequate for calculation of the right ventricular systolic pressure. Pulmonic Valve Pulmonic valve is poorly visualized. Great Vessels Aortic root is normal size. Pericardium No significant pericardial effusion noted. Conclusion 1. Mildly enlarged left atrium, normal left ventricular size, mild concentric left ventricular hypertrophy, visually estimated ejection fraction 55% with no regional wall motion abnormality, grade 1 diastolic dysfunction seen with tissue Doppler evidence of raise left atrial pressure. 2. Thickened and calcified aortic valve without aortic stenosis, there is mild aortic insufficiency. 3. Mild mitral and tricuspid regurgitation. 4. No significant pericardial effusion noted. Electronically signed by : Russel Dickey, 03/29/2019 19:31:28
[2019-03-30 06:32] LABS: Basophils % 0.4 % (0.1-2.0); Eosinophils # 0.2 K/mm3 (0.0-0.4); Hematocrit 39.8 % (37.0-47.0); Hemoglobin 12.5 g/dL (12.2-16.2); Lymphocytes # 0.8 K/mm3 (0.7-4.5); Lymphocytes % 18.4 % (10-50); Mean Corpuscular HGB Conc 31.4 g/dL (31.8-35.4); Mean Corpuscular Volume 87.8 fl (81-99); Mean Platelet Volume 7.7 fl (7.4-10.4); Monocytes # 0.3 K/mm3 (0.1-1.0); Monocytes % 7.5 % (1.7-9.3); Neutrophils % 68.7 % (37.0-80.0); Platelet Count 185 K/mm3 (142-424); Red Blood Count 4.54 M/mm3 (4.20-5.40); Red Cell Distribution Width 15.6 % (11.5-17.5); White Blood Count 4.3 K/mm3 (4.8-10.8)
[2019-03-30 06:35] LABS: Anion Gap 12.5 mEq/L (5-15); Calcium 9.1 mg/dL (8.5-10.1)
--- NOTE | 2019-03-30 07:30 | Progress Note ---
Subjective Date: 03/30/19 Time: 07:27 Principal diagnosis: Elevated troponins with MADERA/angina Interval history: 88 yo WF in bed in NAD. Didn't sleep well due to difficulty finding IV sites. Currently in left foot. No chest pain overnight. Vitals stable. Exam Vital signs and Labs for Last 24 Hours: Temp Pulse Resp BP Pulse Ox 98.4 F 62 18 146/65 H 93 L 03/30/19 04:00 03/30/19 04:00 03/30/19 04:00 03/30/19 04:00 03/30/19 04:00 Laboratory Results - last 24 hr 03/30/19 05:58: WBC 4.3 L D, RBC 4.54, Hgb 12.5, Hct 39.8, MCV 87.8, MCH 27.6, MCHC 31.4 L, RDW 15.6, Plt Count 185, MPV 7.7, Neut % (Auto) 68.7, Lymph % (Auto) 18.4, [place] % (Auto) 7.5, Eos % (Auto) 5.0, Baso % (Auto) 0.4, Neut # (Auto) 3.0, Lymph # (Auto) 0.8, [place] # (Auto) 0.3, Eos # (Auto) 0.2, Baso # (Auto) 0.0 03/30/19 05:58: Sodium 142, Potassium 3.5, Chloride 105, Carbon Dioxide 28, Anion Gap 12.5, BUN 16, Creatinine 1.18 H, Estimated Creat Clear 41, Estimated GFR 43 L, Est GFR ( Amer) 52 L, Glucose 94, Calcium 9.1 I & O for Last 24 hours: Intake & Output 03/27/19 03/28/19 03/29/19 03/30/19 11:59 11:59 11:59 11:59 Intake Total 2482 / 2482 3191 / 3191 720 / 720 Output Total 1050 / 1050 2650 / 2650 960 / 960 Balance 1432 / 1432 541 / 541 -240 / -240 Weight 180 lb 182 lb 15.739 oz 182 lb 15.739 oz 171 lb 4 oz Microbiology Reports for the Last 24 Hours: Microbiology 03/27/19 11:36 Blood Blood Culture - Preliminary NO GROWTH AFTER 48 HOURS 03/27/19 11:36 Blood Blood Culture - Preliminary NO GROWTH AFTER 48 HOURS 03/28/19 11:15 Urine,Catheterized Urine Culture - Preliminary Gram Negative Rods - *Routine Respiratory Exam Present: rales. Absent: accessory muscle use, rhonchi, wheezes - *Routine Cardiovascular Exam Present: RRR. Absent: murmur, gallop, rubs - *Routine Extremities Exam Present: edema. Absent: calf tenderness - *Routine Neurological Exam Present: alert, oriented X3, moving all extremities Progress Note: A&P (1) NSTEMI (non-ST elevated myocardial infarction) Status: Acute Current Visit: Yes (2) Chronic back pain Status: Chronic Current Visit: Yes (3) UTI (urinary tract infection) Status: Acute Current Visit: Yes (4) Altered mental status Status: Acute Current Visit: Yes (5) Elevated troponin I level Status: Acute Current Visit: Yes (6) Hypertension Status: Acute Current Visit: Yes Assessment and Plan for All Diagnoses:: Proceed with [facility] today. Further recommendations to follow. Continue ASA and plavix. Continue BB, statin and ARB.
--- NOTE | 2019-03-30 08:19 | Progress Note ---
Internal Medicine - PN: Subj *Date: 03/30/19 *Time: 08:16 Interval history: Ms. leone did well overnight. A little groggy this morning but seems oriented to person and place. Cardiology planning for left heart catheterization today. Patient denies shortness of breath, chest pain, nausea. Blood pressure remains labile over the past 24 hours. Physical therapy working with patient Exam Vital signs and Labs for Last 24 Hours: Temp Pulse Resp BP Pulse Ox 98.1 F 66 17 189/78 H 94 L 03/30/19 07:43 03/30/19 07:43 03/30/19 07:43 03/30/19 07:43 03/30/19 07:43 Laboratory Results - last 24 hr 03/30/19 05:58: WBC 4.3 L D, RBC 4.54, Hgb 12.5, Hct 39.8, MCV 87.8, MCH 27.6, MCHC 31.4 L, RDW 15.6, Plt Count 185, MPV 7.7, Neut % (Auto) 68.7, Lymph % (Auto) 18.4, Lane % (Auto) 7.5, Eos % (Auto) 5.0, Baso % (Auto) 0.4, Neut # (Auto) 3.0, Lymph # (Auto) 0.8, Lane # (Auto) 0.3, Eos # (Auto) 0.2, Baso # (Auto) 0.0 03/30/19 05:58: Sodium 142, Potassium 3.5, Chloride 105, Carbon Dioxide 28, Anion Gap 12.5, BUN 16, Creatinine 1.18 H, Estimated Creat Clear 41, Estimated GFR 43 L, Est GFR ( Amer) 52 L, Glucose 94, Calcium 9.1 I & O for Last 24 hours: Intake & Output 03/27/19 03/28/19 03/29/19 03/30/19 23:59 23:59 23:59 23:59 Intake Total 794 / 1104 1928 / 1928 3431 / 3671 240 / 240 Output Total 3450 / 3450 1210 / 1210 Balance 794 / 254 -1522 / -1522 2221 / 2461 240 / 240 Weight 77.791 kg 83 kg 83 kg 77.678 kg Microbiology Reports for the Last 24 Hours: Microbiology 03/27/19 11:36 Blood Blood Culture - Preliminary NO GROWTH AFTER 48 HOURS 03/27/19 11:36 Blood Blood Culture - Preliminary NO GROWTH AFTER 48 HOURS 03/28/19 11:15 Urine,Catheterized Urine Culture - Preliminary Gram Negative Rods Narrative: Patient is sitting up in bed. Heart rate regular. No murmurs. Abdomen obese but soft. Lung clear in anterior lung palmer no rhonchi or wheeze. No significant edema. Globally weak. No peripheral deficits. Cranial nerves intact Assessment and Plan (1) NSTEMI (non-ST elevated myocardial infarction) Current visit: Yes Status: Acute Category: Medical Code(s): I21.4 - Non-ST elevation (NSTEMI) myocardial infarction (2) Chronic back pain Current visit: Yes Status: Chronic Category: Medical Code(s): M54.9 - Dorsalgia, unspecified; G89.29 - Other chronic pain (3) UTI (urinary tract infection) Current visit: Yes Status: Acute Category: Medical Code(s): N39.0 - Urinary tract infection, site not specified (4) Altered mental status Current visit: Yes Status: Acute Category: Medical Code(s): R41.82 - Alt ered mental status, unspecified (5) Elevated troponin I level Current visit: Yes Status: Acute Category: Medical Code(s): R79.89 - Other specified abnormal findings of blood chemistry (6) Hypertension Current visit: Yes Status: Acute Qualifiers: Hypertension type: essential hypertension Qualified Code(s): I10 - Essential (primary) hypertension Category: Medical Code(s): I10 - Essential (primary) hypertension - Assessment and plan all Dx Assessment and Plan for all problems:: 88-year-old female with UTI and NSTEMI type II. Planning for left heart cath today. Further management pending results. Will adjust blood pressure regimen pending heart cath findings. Anticipate monitoring overnight on telemetry to continue to make adjustments to blood pressure regimen. Anticipate discharge tomorrow. Tends to require inpatient management
--- NOTE | 2019-03-30 17:53 | Electrocardiograph Report ---
APPROVED REPORT Exam: Resting ECG HR:64 bpm ECG Measurements Heart Rate 64 AXES MD 164 P 45 QRSd 152 QRS -62 QT 464 T27 QTc 478 <Conclusion> Normal sinus rhythm Right bundle branch block Left anterior fascicular block Bifascicular block Moderate voltage criteria for LVH, may be normal variant Abnormal ECG Electronically signed by : Yefri Sierra, 03/30/2019 17:52:47
--- NOTE | 2019-03-30 17:54 | Electrocardiograph Report ---
APPROVED REPORT Exam: Resting ECG HR:87 bpm ECG Measurements Heart Rate 87 AXES OR 162 P 52 QRSd 150 QRS -71 QT 420 T51 QTc 505 <Conclusion> Sinus rhythm with Motion Artifact Right bundle branch block Left anterior fascicular block Bifascicular block Moderate voltage criteria for LVH, may be normal variant Abnormal ECG Electronically signed by : Yefri Sierra, 03/30/2019 17:53:41
[2019-03-31 08:11] LABS: Basophils % 0.3 % (0.1-2.0); Eosinophils # 0.2 K/mm3 (0.0-0.4); Eosinophils % 3.2 % (0.1-12.0); Hematocrit 40.6 % (37.0-47.0); Hemoglobin 12.6 g/dL (12.2-16.2); Lymphocytes # 1.1 K/mm3 (0.7-4.5); Lymphocytes % 18.6 % (10-50); Mean Corpuscular HGB Conc 31.1 g/dL (31.8-35.4); Mean Corpuscular Volume 86.4 fl (81-99); Mean Platelet Volume 7.7 fl (7.4-10.4); Monocytes # 0.3 K/mm3 (0.1-1.0); Monocytes % 4.2 % (1.7-9.3); Neutrophils # 4.4 K/mm3 (1.8-7.8); Neutrophils % 73.6 % (37.0-80.0); Platelet Count 201 K/mm3 (142-424); Red Cell Distribution Width 15.4 % (11.5-17.5)
[2019-03-31 08:15] LABS: Anion Gap 12.8 mEq/L (5-15); Calcium 8.7 mg/dL (8.5-10.1)
--- NOTE | 2019-03-31 08:37 | Discharge Summary ---
General - General Admission date:: 03/27/19 Discharge date: 03/31/19 HPI HPI: Ms. leone is an 88-year-old female with history significant for chronic back pain status post intrathecal pump placement, pretension, hyperlipidemia, hypothyroidism. She presented to the ER with altered mental status yesterday. Her family who is at bedside this morning states that they spoke to her Friday night and she was her normal self, alert and oriented. When they tried to contact her Friday morning, she was confused and not acting like herself. When they went to check on her she was slumped over on her Rollator sitting in seat. She states she had been sick throughout the night and had some episodes of vomiting and feeling poorly. Denied diarrhea, chest pain, shortness of breath, fevers. Had generalized weakness but no focal neurologic deficits upon presentation. Work-up on presentation noted to have negative head CT, mild elevation in troponins, EKG with left anterior fascicular block and right bundle branch block (of note these were present back in August as well). Reports seeing us in clinic on Friday where she was diagnosed with UTI and started on Macrobid. She had taken 2 doses starting Friday night of the medication. Patient was admitted out of concern for elevated troponin, altered mental status, and weakness. Suspected UTI versus UT as cause. On my assessment this morning, patient symptoms seem more consistent with urinary tract infection and NSTEMI due to the stress of her illness and vomiting. Family at bedside states she is back to her normal self. Hospital Course Hospital Course: Patient was admitted to hospital. Stroke was ruled out by [address] scans. Carotid Doppler scanning was good. Echocardiogram showed some mild dysfunction, and troponin elevation was noted. 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 Patient tolerated this well and this morning is doing much better. Patient will be discharged home, we will continue her current antiplatelet therapy with Plavix given her ongoing medication profile. Other blood pressure medication will remain the same and I will adjust this as an outpatient. Patient will be going home with the daughter. Given her significant dyspnea she is extremely homebound and it is very difficult for her to leave the house because of dyspnea and mobility issues. As a result I have asked for physical therapy/Occupational Therapy/nursing evaluation for cardiac disease and fluid status/CHF evaluation with home health. I will follow her in my office in the next couple of days. Of note patient has been treated for UTI. Culture in house shows Proteus infection resistant to Macrobid that has been prescribed as an outpatient. We will change this to Cipro to go home. Objective Vital signs: Temp Pulse Resp BP Pulse Ox 98.3 F 68 17 134/61 91 L 03/31/19 04:00 03/31/19 07:00 03/31/19 07:00 03/31/19 07:00 03/31/19 07:00 Narrative: Patient is pleasant, talkative, oropharynx clear. No JVD. Lungs have minimal bibasilar fine crackles. Otherwise good air movement. Heart rate regular. Abdomen soft and nontender. No ankle edema. Able to move all extremities well. Neurologic exam nonfocal except for weakness. Results Labs on day of discharge: Labs from last 24 hours 03/31/19 03/31/19 03/30/19 08:00 08:00 13:55 WBC 6.0 D RBC 4.70 Hgb 12.6 Hct 40.6 MCV 86.4 MCH 26.9 L MCHC 31.1 L RDW 15.4 Plt Count 201 MPV 7.7 Neut % (Auto) 73.6 Lymph % (Auto) 18.6 [place] % (Auto) 4.2 Eos % (Auto) 3.2 Baso % (Auto) 0.3 Neut # (Auto) 4.4 Lymph # (Auto) 1.1 [place] # (Auto) 0.3 Eos # (Auto) 0.2 Baso # (Auto) 0.0 Activated Clotting Time 283 H* Sodium 141 Potassium 3.8 Chloride 105 Carbon Dioxide 27 Anion Gap 12.8 BUN 16 Creatinine 1.35 H Estimated Creat Clear 37 Estimated GFR 37 L Est GFR ( Amer) 45 L Glucose 99 Calcium 8.7 Preliminary micro results at discharge 03/27/19 11:36 Blood Culture - Preliminary Blood NO GROWTH AFTER 48 HOURS 03/27/19 11:36 Blood Culture - Preliminary Blood NO GROWTH AFTER 48 HOURS DS: Diagnosis - Discharge Diagnosis (1) NSTEMI (non-ST elevated myocardial infarction) Status: Acute (2) Chronic back pain Status: Chronic (3) UTI (urinary tract infection) Status: Acute (4) Altered mental status Status: Acute (5) Elevated troponin I level Status: Acute (6) Hypertension Status: Acute Discharge Plan - Patient Discharge Instructions ACTIVITY: Continue current activity DIET: continue same diet Patient Instructions: Urinary Tract Infection, Heart Attack, Acute Coronary Syndrome, Essential Hypertension, Heart-Healthy Diet, DI for Urinary Tract Infection (UTI), DI for Surgical Site Infection - Follow up Plan Follow up with: Michel Pineda MD [Primary Care Provider] - 04/05/19 Disposition: Home Health Service Home Medications: Home Medications Medication Instructions Recorded Confirmed Type Aspirin [Adult Low Dose Aspirin EC] 81 mg PO HS 04/25/17 03/27/19 History Clopidogrel Bisulfate [Plavix 75mg 75 mg PO DAILY 04/25/17 03/27/19 History Tab] Pravastatin Sodium [Pravachol] 40 mg PO HS 04/25/17 03/27/19 History ALPRAZolam [Xanax 0.5mg tab] 0.5 mg PO HSP PRN 04/26/17 03/27/19 History Lansoprazole [Prevacid] 60 mg PO DAILY 04/26/17 03/27/19 History Sucralfate [Sucralfate 1gm 1 gm PO ACHS 04/26/17 03/27/19 History Tab] bisoproloL fumarate [Bisoprolol 10 mg PO DAILY 04/26/17 03/27/19 History 10mg Tablet] Losartan Potassium 100 mg PO DAILY 04/24/18 03/27/19 History Oxybutynin Chloride [Ditropan 5mg 5 mg PO BID 04/24/18 03/27/19 History tablet] Meloxicam [Mobic 7.5mg Tab] 7.5 mg PO DAILY 08/21/18 03/27/19 History Cyanocobalamin (Vitamin B-12) 500 mcg PO DAILY 09/11/18 03/27/19 History [Vitamin B-12] Ergocalciferol (Vitamin D2) 50,000 unit PO .TWICE A WEEK 09/11/18 03/27/19 History [Vitamin D2] Multivitamin [Multivitamins] 1 each PO DAILY 09/11/18 03/27/19 History [place]-3/Dha/Epa/Fish Oil [Fish Oil 1,000 mg PO HS 09/11/18 03/27/19 History 1,000 mg Softgel] raNITIdine HCl [Ranitidine HCl] 150 mg PO BID 09/11/18 03/27/19 History Nitrofurantoin Monohyd/M-Cryst 100 mg PO BID 03/27/19 03/27/19 History [Nitrofurantoin [place]-Mcr 100 mg] Amlodipine Besylate [Amlodipine 5 mg PO DAILY 03/28/19 03/28/19 History 5mg tab] [place]-3 Fatty Acids/Fish Oil 2,000 mg PO DAILY 03/28/19 03/28/19 History [[place] 3 1,000 mg Softgel] ALPRAZolam [Alprazolam 0.25mg 0.25 mg PO HSP PRN #30 tab 03/31/19 Rx Tab] Ciprofloxacin HCl [Ciprofloxacin 250 mg PO BID #14 tab 03/31/19 Rx 250mg Tab] Prescriptions/Medication Reconciliation: New Ciprofloxacin HCl [Ciprofloxacin 250mg Tab] 250 mg PO BID #14 tab ALPRAZolam [Alprazolam 0.25mg Tab] 0.25 mg PO HSP PRN #30 tab PRN Reason: Insomnia Continued Aspirin [Adult Low Dose Aspirin EC] 81 mg PO HS Clopidogrel Bisulfate [Plavix 75mg Tab] 75 mg PO DAILY Lansoprazole [Prevacid] 60 mg PO DAILY Sucralfate [Sucralfate 1gm Tab] 1 gm PO ACHS bisoproloL fumarate [Bisoprolol 10mg Tablet] 10 mg PO DAILY Losartan Potassium 100 mg PO DAILY Cyanocobalamin (Vitamin B-12) [Vitamin B-12] 500 mcg PO DAILY Ergocalciferol (Vitamin D2) [Vitamin D2] 50,000 unit PO .TWICE A WEEK Multivitamin [Multivitamins] 1 each PO DAILY [place]-3/Dha/Epa/Fish Oil [Fish Oil 1,000 mg Softgel] 1,000 mg PO HS [place]-3 Fatty Acids/Fish Oil [[place] 3 1,000 mg Softgel] 2,000 mg PO DAILY Amlodipine Besylate [Amlodipine 5mg tab] 5 mg PO DAILY Pravastatin Sodium [Pravachol] 40 mg PO HS Oxybutynin Chloride [Ditropan 5mg tablet] 5 mg PO BID raNITIdine HCl [Ranitidine HCl] 150 mg PO BID Discontinued ALPRAZolam [Xanax 0.5mg tab] 0.5 mg PO HSP PRN PRN Reason: Anxiety Meloxicam [Mobic 7.5mg Tab] 7.5 mg PO DAILY Nitrofurantoin Monohyd/M-Cryst [Nitrofurantoin [place]-Mcr 100 mg] 100 mg PO BID - Problem Reconciliation Problems Reviewed?: Yes
--- NOTE | 2019-03-31 09:06 | Progress Note ---
Subjective Date: 03/31/19 Time: 09:01 Principal diagnosis: Elevated troponins with MADERA/angina Interval history: 88 yo WF in chair eating breakfast in NAD. States her breathing is much better. Denies chest pains. Memory issues possibly related to night time meds, being adjusted by Dr. Pineda Exam Vital signs and Labs for Last 24 Hours: Temp Pulse Resp BP Pulse Ox 98.4 F 68 17 134/61 91 L 03/31/19 08:00 03/31/19 07:00 03/31/19 07:00 03/31/19 07:00 03/31/19 07:00 Laboratory Results - last 24 hr 03/30/19 13:55: Activated Clotting Time 283 H* 03/31/19 08:00: WBC 6.0 D, RBC 4.70, Hgb 12.6, Hct 40.6, MCV 86.4, MCH 26.9 L, MCHC 31.1 L, RDW 15.4, Plt Count 201, MPV 7.7, Neut % (Auto) 73.6, Lymph % (Auto) 18.6, [place] % (Auto) 4.2, Eos % (Auto) 3.2, Baso % (Auto) 0.3, Neut # (Auto) 4.4, Lymph # (Auto) 1.1, [place] # (Auto) 0.3, Eos # (Auto) 0.2, Baso # (Auto) 0.0 03/31/19 08:00: Sodium 141, Potassium 3.8, Chloride 105, Carbon Dioxide 27, Anion Gap 12.8, BUN 16, Creatinine 1.35 H, Estimated Creat Clear 37, Estimated GFR 37 L, Est GFR ( Amer) 45 L, Glucose 99, Calcium 8.7 I & O for Last 24 hours: Intake & Output 03/28/19 03/29/19 03/30/19 03/31/19 11:59 11:59 11:59 11:59 Intake Total 2482 / 2482 3341 / 3341 720 / 720 2438 / 2438 Output Total 1050 / 1050 2650 / 2650 960 / 960 250 / 250 Balance 1432 / 1432 691 / 691 -240 / -240 2188 / 2188 Weight 182 lb 15.739 oz 182 lb 15.739 oz 171 lb 4 oz 174 lb 3 oz Microbiology Reports for the Last 24 Hours: Microbiology 03/28/19 11:15 Urine,Catheterized Urine Culture - Final Proteus mirabilis - *Routine Respiratory Exam Present: CTA bilaterally. Absent: accessory muscle use, rales, rhonchi, wheezes - *Routine Cardiovascular Exam Present: RRR. Absent: murmur, gallop, rubs - *Routine Extremities Exam Absent: edema, calf tenderness - *Routine Neurological Exam Present: alert, oriented X3, moving all extremities Progress Note: A&P (1) NSTEMI (non-ST elevated myocardial infarction) Status: Acute Current Visit: Yes (2) Chronic back pain Status: Chronic Current Visit: Yes (3) UTI (urinary tract infection) Status: Acute Current Visit: Yes (4) Altered mental status Status: Acute Current Visit: Yes (5) Elevated troponin I level Status: Acute Current Visit: Yes (6) Hypertension Status: Acute Current Visit: Yes Assessment and Plan for All Diagnoses:: 1. 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 2. HTN, on ARB, BB and norvasc, improved. 3. HLD, on statin. 4. OK for discharge from cardiology standpoint on current meds. Follow up in one week.
== END 2019-03-31 10:50 | disposition home health service (06) | DRG 247 ==
LOC: ER 11:21 → 2ND 11:21 → OBSVTOIN 16:13 → 2ND 03-30 13:34
PROVIDERS: ADMIT Emergency Medicine; ATTEND Internal Medicine Adolescent Medicine
CPT/HCPCS: 36415; 70450; 71010; 71045; 80048; 80053; 80305; 81001; 82803; 83605; 83735; 84443; 84484; 85007; 85025; 85347; 85610; 85730; 87040; 87086; 87088; 87186; 92928; 93005; 93306; 93458; 93880; 93976; 96365; 96375; 97110; 97161; 97166; 97530; 99152; 99285; C1725; C1769; C1876; C9600; J1644; J1956; J2185; J2405; Q9967